=== PATIENT | female | born 2000 | race Caucasian/White ===

== ENCOUNTER → 2022-07-16 09:39 | Outpatient (BNVA) | payer BC, SELFPAY | PROVIDERS: Visit Provider Physician Assistant | DX: Z13.89 Encounter for screening for other disorder (principal) ==

== ENCOUNTER 2023-09-05 12:12 | Outpatient (AMB) | payer OTHER, SELFPAY ==
--- NOTE | 2023-09-05 09:13 | A.OFFPSYCH_ITS ---
Intake Vital Signs 09/05/23 09:28 Height 5 ft 3 in Weight 108 lb Intake Visit Reasons: depression, LAUREN (generalized anxiety disorder), Major depressive disorder, recurrent episode, moderate Configurator Required: No Allergies No Known Allergies Allergy (Verified 09/05/23 09:29) Medication List - Last Reconciled 09/05/23 by Liberty Hinson, VÍCTOR bupropion HCl 300 mg PO DAILY hydroxyzine HCl 25 - 50 mg PO BEDTIME lamotrigine 0 mg PO sertraline 100 mg PO DAILY HPI- Psychiatric Chief Complaint: depression, LAUREN (generalized anxiety disorder), Major depressive disorder, recurrent episode, moderate HPI Narrative: reports mood is low. she recently had TSH tested and it was high - her T3 and T4 levels were normal; she would like to have another follow up with PCP. she still feeels low energy, low mood; lack of enjoyment. we discussed how thyroid functioning can effect mood. She is anxious; she has stress with needing to find new housemate, she has work stress and one friend intentionally overdosed; her friend who overdosed is ok but pt was very worried and she had to call 911 to have police do wellness check in [place]. she reports fewer urges to self harm and no acts of self harm. No SI or HI. No rash. She is spending time with friends; Pt feels ADLs are easier to manage. she is sleeping better with hydroxyzine 25-50mg at hs Past Psychiatric History: History of self injury-at least two episodes of depression - one in high school and another which started in July 2018 and was quite significant for 3-6 weeks with increased SI and self harm urges; no hx hospitalization; has had stitches for self injury. Panic attacks: Yes Agoraphobia: Yes Separation anxiety disorder: No Social phobia: Yes Specific phobia: No Hypochondriasis: No Body dysmorphic disorder: Yes Obsessive compulsive disorder: No Generalized anxiety: Yes Post traumatic stress disorder: No Acute stress disorder: No Previous inpatient psychiatric hospitalization: No Other previous psychiatric treatment programs: none History of suicidal ideation: Yes History of suicide attempt: No Medically hospitalized: No History of self injurious behavior: Yes History of violence: No Current/previous psychiatrist: wei Current/previous therapist: Norene Andrews Subjective Subjective Subjective Medication Compliance: Yes Side effects from medications: No Review of Systems Medical Review of Systems: unchanged Mental Status Exam Mental Status Exam Patient Appearance: Well Grooomed and Appropriate Patient Orientation: Person, Place, Time and Situation Level of Consciousness: Awake Patient Behavior: Appropriate Mood Description: Withdrawn, Flat and Sad Affect Description: Withdrawn, Flat and Sad Patient Cognition Impaired: No Ability to Follow Directions: Good Speech Pattern: Soft-Spoken Memory Description: Intact Hallucinations: None Thought Process: Goal Oriented Thought Content: positive for Goal Oriented Judgement: Good Telehealth Telehealth Location of provider rendering services: practice address Location of patient: address on file Patient Identification confirmed using: Name, : Yes Telehealth method: video Patient verbally consented to treatment: Yes Patient verbally consented to billing insurance company: Yes Patient informed of any privacy concerns related to visit: Yes Minutes spent on Phone/Video with Pt.: 30 Assessment and Plan Assessment & Plan (1) Moderate episode of recurrent major depressive disorder: Code(s): F33.1 - Major depressive disorder, recurrent, moderate (2) Generalized anxiety disorder: Code(s): F41.1 - Generalized anxiety disorder Plan continue current medications pt will follow up with PCP re: tsh will call TW if need order for TSH blood work repeat follow up in 4 weeks Medications: New sertraline 100 mg PO DAILY 30 tabs 2RF bupropion HCl 300 mg PO DAILY 30 tabs 2RF hydroxyzine HCl 25 - 50 mg (1 - 2 x 25 mg) PO BEDTIME 30 tabs 2RF Changed From lamotrigine PO To lamotrigine 100 mg orally Take one tablet in morning and 1/2 tablet at bedtime; 135 tabs 1RF Counseling and coordination of Care Pt. Self Management counseling: Maintenance-social rhythm, Mod caffeine/ETOH intake and Behavior activation Medication management counseling: Effectiveness, Side effects, Dosing range, Duration, Drug interaction and Adherence Diagnosis and Prognosis Counseling: Accuracy of diagnosis, Prognosis over time, Impact of diagnosis on life functions, Impact of family relationship, Problema tic behaviors secondary to diagnosis and Adequacy of current interventions Details: I spent 30 minutes reviewing the record, seeing the patient and documenting in the medical record. Counseling provided to the patient/caregiver as outlined below. Addressed patient/caregiver concerns regarding current medication regime including effective adherence. Addressed patient/caregiver concerns regarding diagnosis and prognosis including accuracy of diagnosis, prognosis over time, impact of diagnosis. Addressed patient/caregiver concerns regarding impact of recent s tressors. [facility] Social History (Updated 07/16/22 @ 09:50 by Jerica Farmer) Alcohol intake: current Patient Tobacco Use Status: Never used Tobacco Current occupational status: employed Social History: lives with friends, graduated from [employer] [place] in 2022. Substance History: ETOH use 2-3 times a week; no other drugs Trauma History: none known Coding Level of Care Code Est Pt Level 4 (04707) Diagnoses Moderate episode of recurrent major depressive disorder F33.1 Generalized anxiety disorder F41.1
== END 2023-09-05 12:14 | disposition home or self-care (01) ==
LOC: HO.HOP 12:13
PROVIDERS: Visit Provider Clinical Nurse Specialist Psychiatric/Mental Health
DX: F33.1 Major depressive disorder, recurrent, moderate (principal); F41.1 Generalized anxiety disorder
CPT/HCPCS: 99214

== ENCOUNTER → 2023-09-05 12:12 | Outpatient (BNVA) | payer BC, SELFPAY | PROVIDERS: Visit Provider Clinical Nurse Specialist Psychiatric/Mental Health | DX: F33.1 Major depressive disorder, recurrent, moderate (principal); F41.1 Generalized anxiety disorder ==

== ENCOUNTER 2023-11-18 13:21 | Outpatient (AMB) | payer MEDICAID, SELFPAY ==
--- NOTE | 2023-11-18 09:38 | MHC.OFFVISPS ---
Intake Intake Visit Reasons: depression Allergies diphenhydramine [From Benadryl] Adverse Reaction (Severe, Verified 11/18/23 10:33) agitation/hyper/anxious Medication List - Last Reconciled 11/18/23 by Liberty Hinson APRN bupropion HCl XL 300 mg PO DAILY hydroxyzine HCl 25 - 50 mg (1 - 2 x 25 mg) PO BEDTIME lamotrigine 100 mg orally Take one tablet in morning and 1/2 tablet at bedtime; sertraline 100 mg PO DAILY HPI- Psychiatric Chief Complaint: depression HPI Narrative: pt is a 23 yo woman with history of depression and SIB since high school. She had been doing well with the addition of lamictal but recently had more depression and feelings of frustraion and sadness; feeling overwhelmed at one of her jobs. Had an episode of feeling strong negative emotioons and burnt herself; she reports itis healing and no sign of infection; pt also confides that she has a histroy of OCD intrusive thoughts and ritual . she has in the past had intrusive thoughts after she drives that she has hit someone and has to retrace her steps driving the same route to make sure; she reports a histroy of other thoughts like that but is reluctant to talk about them; TW has been seeing pt since 2019 and this is the first time that she has shared OCD symptoms which I told her was very helpful for me to know. she wants to reduce the zoloft as she feels it may be causing more mood swings but is also concerned because she felt it reduced the OCD thoughts; we will monitor response closely; discussed other options for OCD symptoms including other SSRis , SNRIs, or tricylcics and possible low dose antipsychotics Past Psychiatric History: no IPLOC History of self injury. at least two episodes of depression - one in high school and another which started in July 2018 and was quite significant for 3-6 weeks with increased SI and self harm urges; no hx hospitalization; has had stitches for self injury. Dx with ADHD. past medication trials Benadryl- adverse reaction with agitation, anxiety, hyperactive zoloft- moderate response- higher dose caused feeling detached melatonin- ineffective clonidine - ineffective trazodone - ineffective- too sedating mirtazepine- too sedating concerta - too activating ritlain - anxiety, ineffective adderall- activating Subjective Subjective Subjective Medication Compliance: Yes Side effects from medications: No Review of Systems Medical Review of Systems: unchanged Mental Status Exam Mental Status Exam Patient Appearance: Well Grooomed and Appropriate Patient Orientation: Person, Place, Time and Situation Level of Consciousness: Alert Patient Behavior: Appropriate and Cooperative Mood Description: Constricted and Anxious Affect Description: Constricted and Flat Patient Cognition Impaired: No Ability to Follow Directions: Good Speech Pattern: Clear, Soft-Spoken and Delayed Memory Description: Intact Hallucinations: None Delusions: Not Present Thought Process: Intact Thought Content: positive for Intact Judgement: Fair Assessment and Plan Assessment & Plan (1) OCD (obsessive compulsive disorder): Status: Acute Qualifiers: Obsessive-compulsive disorder type: mixed obsessional thoughts and acts Qualified Code(s): F42.2 - Mixed obsessional thoughts and acts Code(s): F42.9 - Obsessive-compulsive disorder, unspecified (2) Major depressive disorder, recurrent, moderate: Status: Acute Code(s): F33.1 - Major depressive disorder, recurrent, moderate Plan decrease zoloft to 50mg daily continue lamictal 100mg in am and 50mg at bedtime continue wellbutrin [id number] qam continue hydroxyzine prn anxiety and sleep retrun in 4 weeks Medications: Refilled bupropion HCl XL 300 mg PO DAILY 30 tabs 2RF hydroxyzine HCl 25 - 50 mg (1 - 2 x 25 mg) PO BEDTIME 30 tabs 2RF lamotrigine 100 mg orally Take one tablet in morning and 1/2 tablet at bedtime; 135 tabs 1RF Counseling and coordination of Care Pt. Self Management counseling: Maintenance-social rhythm, Mindfulness, Sleep hygiene and Cognitive restructuring Medication management counseling: Effectiveness, Side effects, Dosing range, Duration, Drug interaction and Adherence Diagnosis and Prognosis Counseling: Accuracy of diagnosis, Prognosis over time, Impact of diagnosis on life functions, Impact of family relationship, Problematic behaviors secondary to diagnosis, Adequacy of current interventions and Other (additional options for treatment ) Details: I spent 45 minutes reviewing the record, seeing the patient and documenting in the medical record. Counseling provided to the patient/caregiver as outlined below. Addressed patient/caregiver concerns regarding current medication regime including effective adherence. Addressed patient/caregiver concerns regarding diagnosis and prognosis including accuracy of diagnosis, prognosis over time, impact of diagnosis. Addressed patient/caregiver concerns regarding impact of recent stressors. PFSH Social History (Updated 07/16/22 @ 09:50 by Jerica Farmer) Alcohol intake: current Patient Tobacco Use Status: Never used Tobacco Current occupational status: employed Social History: lives with friends, [place] [employer] [facility] [place]. Substance History: ETOH use 2-3 times a week; no other drugs Trauma History: none known Coding Level of Care Code Est Pt Level 5 (54199) Diagnoses Mixed obsessional thoughts and acts F42.2 Obsessive-compulsive disorder type: mixed obsessional thoughts and acts Major depressive disorder, recurrent, moderate F33.1
== END 2023-11-18 13:22 | disposition home or self-care (01) ==
LOC: HO.HOP 13:21
PROVIDERS: Visit Provider Clinical Nurse Specialist Psychiatric/Mental Health
DX: F42.2 Mixed obsessional thoughts and acts (principal); F33.1 Major depressive disorder, recurrent, moderate
CPT/HCPCS: 99215

== ENCOUNTER → 2023-11-18 13:21 | Outpatient (BNVA) | payer MEDICAID, SELFPAY | PROVIDERS: Visit Provider Clinical Nurse Specialist Psychiatric/Mental Health | DX: F42.2 Mixed obsessional thoughts and acts (principal); F33.1 Major depressive disorder, recurrent, moderate; Z79.899 Other long term (current) drug therapy | CPT/HCPCS: 99212 ==

== ENCOUNTER 2023-12-15 19:06 | Outpatient (AMB) | payer OTHER, SELFPAY ==
--- NOTE | 2023-12-15 11:32 | A.OFFPSYCH_ITS ---
Intake Intake Visit Reasons: depression Forensic Nurse Required: No Allergies diphenhydramine [From Benadryl] Adverse Reaction (Severe, Verified 11/18/23 10:33) agitation/hyper/anxious Medication List - Last Reconciled 12/15/23 by Liberty Hinson APRN bupropion HCl XL 300 mg PO DAILY hydroxyzine HCl 25 - 50 mg (1 - 2 x 25 mg) PO BEDTIME lamotrigine 100 mg orally Take one tablet in morning and 1/2 tablet at bedtime; sertraline 100 mg (2 x 50 mg) PO DAILY HPI- Psychiatric Chief Complaint: depression HPI Narrative: pt reports an increase in intrusive thoughts that she repeats in her head since the decrease in zoloft; she has also had increase stress at work which may be fueling these thoughts; no SI or HI. level of distress from repeating thoughts is a 7/10. no self harm behaviors; we discussed her resuming the zoloft 100mg daily until work stress decreases and then consider trying another agent due tot he zoloft flattening her mood. Past Psychiatric History: no IPLOC History of self injury. at least two episodes of depression - one in high school and another which started in July 2018 and was quite significant for 3-6 weeks with increased SI and self harm urges; no hx hospitalization; has had stitches for self injury. Dx with ADHD. past medication trials Benadryl- adverse reaction with agitation, anxiety, hyperactive zoloft- moderate response- higher dose caused feeling detached melatonin- ineffective clonidine - ineffective trazodone - ineffective- too sedating mirtazepine- too sedating concerta - too activating ritlain - anxiety, ineffective adderall- activating Subjective Subjective Subjective Medication Compliance: Yes Side effects from medications: No Review of Systems Medical Review of Systems: unchanged Mental Status Exam Mental Status Exam Patient Appearance: Well Grooomed Patient Orientation: Person, Place, Time and Situation Level of Consciousness: Awake Patient Behavior: Appropriate Mood Description: Anxious Affect Description: Constricted Patient Cognition Impaired: No Ability to Follow Directions: Good Speech Pattern: Clear Memory Description: Intact Hallucinations: None Delusions: Not Present Thought Process: Intact Thought Content: positive for Intact Judgement: Fair Telehealth Telehealth Telehealth Platform: Other (please specify) ([email or web address]) Location of provider rendering services: practice address Location of patient: address on file Telehealth method: video Patient verbally consented to treatment: Yes Patient verbally consented to billing insurance company: Yes Patient informed of any privacy concerns related to visit: Yes Minutes spent on Phone/Video with Pt.: 25 Assessment and Plan Assessment & Plan (1) OCD (obsessive compulsive disorder): Status: Acute Qualifiers: Obsessive-compulsive disorder type: mixed obsessional thoughts and acts Qualified Code(s): F42.2 - Mixed obsessional thoughts and acts Code(s): F42.9 - Obsessive-compulsive disorder, unspecified (2) Major depressive disorder, recurrent, moderate: Status: Acute Code(s): F33.1 - Major depressive disorder, recurrent, moderate Plan increase in OCD symptoms with reduced zoloft. resume zoloft dose and consider alternative in future when external stressors remit Medications: Changed From sertraline 75 mg (1.5 x 50 mg) PO DAILY 45 tabs 2RF To sertraline 100 mg (2 x 50 mg) PO DAILY 60 tabs 2RF Counseling and coordination of Care Pt. Self Management counseling: General coping skills Medication management counseling: Effectiveness, Side effects, Dosing range, Duration, Drug interaction and Adherence Diagnosis and Prognosis Counseling: Accuracy of diagnosis, Prognosis over time, Impact of diagnosis on life functions and Adequacy of current interventions Details: I spent 30 minutes reviewing the record, seeing the patient and documenting in the medical record. Counseling provided to the patient/caregiver as outlined below. Addressed patient/caregiver concerns regarding current medication regime including effective adherence. Addressed patient/caregiver concerns regarding diagnosis and prognosis including accuracy of diagnosis, prognosis over time, impact of diagnosis. Addressed patient/caregiver concerns regarding impact of recent stressors. [facility] Social History (Updated 07/16/22 @ 09:50 by Jerica Farmer) Alcohol intake: current Patient Tobacco Use Status: Never used Tobacco Current occupational status: employed Social History: lives with friends, graduated from [employer] [facility] [place] in 2022. Substance History: ETOH use 2-3 times a week; no other drugs Trauma History: none known Coding Level of Care Code Tele Est Pt Level 4 (06029) Diagnoses Mixed obsessional thoughts and acts F42.2 Obsessive-compulsive disorder type: mixed obsessional thoughts and acts Major depressive disorder, recurrent, moderate F33.1
== END 2023-12-15 19:07 | disposition home or self-care (01) ==
PROVIDERS: Visit Provider Clinical Nurse Specialist Psychiatric/Mental Health
DX: F42.2 Mixed obsessional thoughts and acts (principal); F33.1 Major depressive disorder, recurrent, moderate
CPT/HCPCS: 99214

== ENCOUNTER → 2023-12-15 19:06 | Outpatient (BNVA) | payer OTHER, SELFPAY | PROVIDERS: Visit Provider Clinical Nurse Specialist Psychiatric/Mental Health | DX: F42.2 Mixed obsessional thoughts and acts (principal); F33.1 Major depressive disorder, recurrent, moderate ==

== ENCOUNTER 2024-01-19 14:42 | Outpatient (AMB) | payer OTHER, SELFPAY ==
--- NOTE | 2024-01-19 10:16 | A.OFFPSYCH_ITS ---
Intake Intake Visit Reasons: depression Physiologist Required: No Allergies diphenhydramine [From Benadryl] Adverse Reaction (Severe, Verified 11/18/23 10:33) agitation/hyper/anxious Medication List - Last Reconciled 01/19/24 by Liberty Hinson APRN bupropion HCl XL 300 mg PO DAILY hydroxyzine HCl 25 - 50 mg (1 - 2 x 25 mg) PO BEDTIME lamotrigine 100 mg orally Take one tablet in morning and 1/2 tablet at bedtime; sertraline 100 mg (2 x 50 mg) PO DAILY HPI- Psychiatric Chief Complaint: depression HPI Narrative: mood improved; intrusive thoughts decreased; OCD improved with restart of zoloft. pt not sleeping well despite hydroxyzine; continues with work stress and worry. meeting with therapist regularly; no SI or HI ; no medical changes Past Psychiatric History: no IPLOC History of self injury. at least two episodes of depression - one in high school and another which started in July 2018 and was quite significant for 3-6 weeks with increased SI and self harm urges; no hx hospitalization; has had stitches for self injury. Dx with ADHD. past medication trials Benadryl- adverse reaction with agitation, anxiety, hyperactive zoloft- moderate response- higher dose caused feeling detached melatonin- ineffective clonidine - ineffective trazodone - ineffective- too sedating mirtazepine- too sedating concerta - too activating ritlain - anxiety, ineffective adderall- activating Subjective Subjective Subjective Medication Compliance: Yes Side effects from medications: No Review of Systems Medical Review of Systems: unchanged Mental Status Exam Mental Status Exam Patient Appearance: Well Grooomed and Appropriate Patient Orientation: Person, Place, Time and Situation Level of Consciousness: Awake Patient Behavior: Appropriate Mood Description: Calm Affect Description: Calm Patient Cognition Impaired: No Ability to Follow Directions: Good Speech Pattern: Clear Memory Description: Intact Hallucinations: None Delusions: Not Present Thought Process: Intact Thought Content: positive for Intact Judgement: Good Assessment and Plan Assessment & Plan (1) Major depressive disorder, recurrent, moderate: Status: Acute Code(s): F33.1 - Major depressive disorder, recurrent, moderate (2) OCD (obsessive compulsive disorder): Status: Acute Qualifiers: Obsessive-compulsive disorder type: mixed obsessional thoughts and acts Qualified Code(s): F42.2 - Mixed obsessional thoughts and acts Code(s): F42.9 - Obsessive-compulsive disorder, unspecified (3) Insomnia: Status: Acute Qualifiers: Insomnia type: unspecified Qualified Code(s): G47.00 - Insomnia, unspecified Code(s): G47.00 - Insomnia, unspecified Plan change lamictal to once daily dosing in am in case causinf or contributing to insomnia lamictal 150 mg every morning continue zoloft 100mg daily continue wellbutrin Xl 300mg every morning continue hydroxyzine Medications: New sertraline 100 mg PO DAILY 90 tabs 0RF Counseling and coordination of Care Pt. Self Management counseling: Mod caffeine/ETOH intake, Sleep hygiene and General coping skills Medication management counseling: Effectiveness, Side effects, Dosing range, Duration, Drug interaction and Adherence Diagnosis and Prognosis Counseling: Accuracy of diagnosis, Prognosis over time, Impact of diagnosis on life functions, Impact of family relationship, Problematic behaviors secondary to diagnosis and Adequacy of current interventions Details: I spent 30 minutes reviewing the record, seeing the patient and documenting in the medical record. Counseling provided to the patient/caregiver as outlined below. Addressed patient/caregiver concerns regarding current medication regime including effective adherence. Addressed patient/caregiver concerns regarding diagnosis and prognosis including accuracy of diagnosis, prognosis over time, impact of diagnosis. Addressed patient/caregiver concerns regarding impact of recent stressors. [facility] Social History (Updated 07/16/22 @ 09:50 by Jerica Farmer) Alcohol intake: current Patient Tobacco Use Status: Never used Tobacco Current occupational status: employed Social History: lives with friends, graduated from [employer] [facility] [place] in 2022. Substance History: ETOH use 2-3 times a week; no other drugs Trauma History: none known Coding Level of Care Code Est Pt Level 4 (54408) Diagnoses Major depressive disorder, recurrent, moderate F33.1 Mixed obsessional thoughts and acts F42.2 Obsessive-compulsive disorder type: mixed obsessional thoughts and acts Insomnia, unspecified type G47.00 Insomnia type: unspecified
== END 2024-01-19 14:43 | disposition home or self-care (01) ==
LOC: HO.HOP 14:42
PROVIDERS: Visit Provider Clinical Nurse Specialist Psychiatric/Mental Health
DX: F33.1 Major depressive disorder, recurrent, moderate (principal); F42.2 Mixed obsessional thoughts and acts; G47.00 Insomnia, unspecified
CPT/HCPCS: 99214

== ENCOUNTER → 2024-01-19 14:42 | Outpatient (BNVA) | payer OTHER, SELFPAY | PROVIDERS: Visit Provider Clinical Nurse Specialist Psychiatric/Mental Health | DX: F42.2 Mixed obsessional thoughts and acts (principal); F33.1 Major depressive disorder, recurrent, moderate; G47.00 Insomnia, unspecified ==

== ENCOUNTER → 2024-02-24 16:09 | Outpatient (BNVA) | payer OTHER, SELFPAY | PROVIDERS: Visit Provider Clinical Nurse Specialist Psychiatric/Mental Health | DX: F42.2 Mixed obsessional thoughts and acts (principal); F33.1 Major depressive disorder, recurrent, moderate; G47.00 Insomnia, unspecified ==

== ENCOUNTER 2024-03-23 13:20 | Outpatient (AMB) | payer OTHER, SELFPAY ==
--- NOTE | 2024-03-23 13:03 | A.OFFPSYCH_ITS ---
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 she also reports Obsessive Compulsive Disorder symptoms are improved. She reports her sleep is not good she is often staying up late as she adjusts to her new work schedule where she is working 2nd shift. She reports her self-care has suffered as she adjusts to her new schedule. She does not want to change meds. She is seeing her therapist on a regular basis. And she is working on lifestyle changes. No SI no HI Past Psychiatric History: no IPLOC History of self injury. at least two episodes of depression - one in high school and another which started in July 2018 and was quite significant for 3-6 weeks with increased SI and self harm urges; no hx hospitalization; has had stitches for self injury. Dx with ADHD. past medication trials Benadryl- adverse reaction with agitation, anxiety, hyperactive zoloft- moderate response- higher dose caused feeling detached melatonin- ineffective clonidine - ineffective trazodone - ineffective- too sedating mirtazepine- too sedating concerta - too activating ritlain - anxiety, ineffective adderall- activating Subjective Subjective Subjective Medication Compliance: Yes Side effects from medications: No Review of Systems Medical Review of Systems: unchanged Mental Status Exam Mental Status Exam Patient Appearance: Appropriate Patient Orientation: Person, Place, Time and Situation Level of Consciousness: Awake and Appropriate Patient Behavior: Appropriate Mood Description: Calm, Withdrawn and Blunted Affect Description: Calm, Withdrawn and Blunted Patient Cognition Impaired: No Ability to Follow Directions: Good Speech Pattern: Clear and Appropriate Memory Description: Intact Hallucinations: None Delusions: Not Present Thought Process: Intact and Goal Oriented Thought Content: positive for Intact and positive for Goal Oriented Judgement: Good Telehealth Telehealth Telehealth Platform: Other (please specify) ([email or web address]) Location of provider rendering services: practice address Location of patient: address on file Patient Identification confirmed using: Name, : Yes Telehealth method: video Patient verbally consented to treatment: Yes Patient verbally consented to billing insurance company: Yes Patient informed of any privacy concerns related to visit: Yes Minutes spent on Phone/Video with Pt.: 25 Assessment and Plan Assessment & Plan (1) Insomnia: Status: Acute Qualifiers: Insomnia type: unspecified Qualified Code(s): G47.00 - Insomnia, unspecified Code(s): G47.00 - Insomnia, unspecified (2) Major depressive disorder, recurrent, moderate: Status: Acute Code(s): F33.1 - Major depressive disorder, recurrent, moderate (3) OCD (obsessive compulsive disorder): Status: Acute Code(s): F42.9 - Obsessive-compulsive disorder, unspecified Plan continue medications sleep hygiene routine Medications: Refilled bupropion HCl XL 300 mg PO DAILY 30 tabs 2RF sertraline 100 mg PO DAILY 90 tabs 2RF lamotrigine 100 mg orally Take one tablet in morning and 1/2 tablet at bedtime; 135 tabs 1RF hydroxyzine HCl 25 - 50 mg (1 - 2 x 25 mg) PO BEDTIME 90 tabs 1RF 90 days Counseling and coordination of Care Pt. Self Management counseling: Maintenance-social rhythm and Sleep hygiene Medication management counseling: Effectiveness, Side effects, Dosing range, Duration, Drug interaction and Adherence Diagnosis and Prognosis Counseling: Accuracy of diagnosis, Prognosis over time, Impact of diagnosis on life functions and Adequacy of current interventions Details: I spent 35 minutes reviewing the record, seeing the patient and documenting in the medical record. Counseling provided to the patient/caregiver as outlined below. Addressed patient/caregiver concerns regarding current medication regime including effective adherence. Addressed patient/caregiver concerns regarding diagnosis and prognosis including accuracy of diagnosis, prognosis over time, impact of diagnosis. Addressed patient/caregiver concerns regarding impact of recent stressors. [facility] Social History (Updated 07/16/22 @ 09:50 by Jerica Farmer) Alcohol intake: current Patient Tobacco Use Status: Never used Tobacco Current occupational status: employed Social History: lives with friends, graduated from [employer] [facility] [place] in 2022. Substance History: ETOH use 2-3 times a week; no other drugs Trauma History: none known Coding Level of Care Code Est Pt Level 4 (87582) Diagnoses Insomnia, unspecified type G47.00 Insomnia type: unspecified Major depressive disorder, recurrent, moderate F33.1 OCD (obsessive compulsive disorder) F42.9
== END 2024-03-23 14:09 | disposition home or self-care (01) ==
LOC: HO.HOP 13:20
PROVIDERS: Visit Provider Clinical Nurse Specialist Psychiatric/Mental Health
DX: F33.1 Major depressive disorder, recurrent, moderate (principal); F42.9 Obsessive-compulsive disorder, unspecified; G47.00 Insomnia, unspecified
CPT/HCPCS: 99214

== ENCOUNTER → 2024-03-23 13:20 | Outpatient (BNVA) | payer OTHER, SELFPAY | PROVIDERS: Visit Provider Clinical Nurse Specialist Psychiatric/Mental Health | DX: F42.2 Mixed obsessional thoughts and acts (principal); F33.1 Major depressive disorder, recurrent, moderate; G47.00 Insomnia, unspecified ==

== ENCOUNTER 2024-04-26 13:00 | Outpatient (AMB) | payer OTHER, SELFPAY ==
--- NOTE | 2024-04-26 12:42 | MHC.OFFVISPS ---
Intake Intake Visit Reasons: depression Allergies diphenhydramine [From Benadryl] Adverse Reaction (Severe, Verified 11/18/23 10:33) agitation/hyper/anxious Medication List - Last Reconciled 04/26/24 by Liberty Hinson APRN bupropion HCl XL 300 mg PO DAILY hydroxyzine HCl 25 - 50 mg (1 - 2 x 25 mg) PO BEDTIME 90 days lamotrigine 100 mg orally Take one tablet in morning and 1/2 tablet at bedtime; sertraline 100 mg PO DAILY sumatriptan succinate mg PO HPI- Psychiatric Chief Complaint: depression HPI Narrative: Patient reports she continues to feel somewhat depressed and anxious. She reports continued distress at work. Her affect is brighter. She is consistent with the medications and she is taking vitamins: taking vit b2 daily vit D 1000 daily multivitamin magnesium 400mg at bedtime Her sleep is fair no self-harm behaviors. No SI no HI Past Psychiatric History: no IPLOC History of self injury. at least two episodes of depression - one in high school and another which started in July 2018 and was quite significant for 3-6 weeks with increased SI and self harm urges; no hx hospitalization; has had stitches for self injury. Dx with ADHD. past medication trials Benadryl- adverse reaction with agitation, anxiety, hyperactive zoloft- moderate response- higher dose caused feeling detached melatonin- ineffective clonidine - ineffective trazodone - ineffective- too sedating mirtazepine- too sedating concerta - too activating ritlain - anxiety, ineffective adderall- activating Mental Status Exam Mental Status Exam Patient Appearance: Well Grooomed Patient Orientation: Person, Time and Situation Level of Consciousness: Awake and Appropriate Patient Behavior: Appropriate and Cooperative Mood Description: Happy, Constricted and Anxious Affect Description: Happy, Constricted and Anxious Patient Cognition Impaired: No Ability to Follow Directions: Good Speech Pattern: Clear Memory Description: Intact Hallucinations: None Delusions: Not Present Thought Process: Intact and Goal Oriented Thought Content: positive for Intact and positive for Goal Oriented Judgement: Good Telehealth Telehealth Telehealth Platform: Other (please specify) ([email or web address]) Location of provider rendering services: practice address Location of patient: address on file Patient Identification confirmed using: Name, : Yes Telehealth method: video Patient verbally consented to treatment: Yes Patient verbally consented to billing insurance company: Yes Patient informed of any privacy concerns related to visit: Yes Minutes spent on Phone/Video with Pt.: 30 Assessment and Plan Assessment & Plan (1) Insomnia: Status: Acute Qualifiers: Insomnia type: unspecified Qualified Code(s): G47.00 - Insomnia, unspecified Code(s): G47.00 - Insomnia, unspecified (2) Major depressive disorder, recurrent, moderate: Status: Acute Code(s): F33.1 - Major depressive disorder, recurrent, moderate (3) OCD (obsessive compulsive disorder): Status: Acute Qualifiers: Obsessive-compulsive disorder type: mixed obsessional thoughts and acts Qualified Code(s): F42.2 - Mixed obsessional thoughts and acts Code(s): F42.9 - Obsessive-compulsive disorder, unspecified Plan Continue medications with no changes. Patient is feeling good about medications at this point and will continue to work on stress management and coping skills. Return in 1 month Medications: Refilled sertraline 100 mg PO DAILY 90 tabs 2RF bupropion HCl XL 300 mg PO DAILY 30 tabs 2RF hydroxyzine HCl 25 - 50 mg (1 - 2 x 25 mg) PO BEDTIME 90 tabs 1RF 90 days lamotrigine 100 mg orally Take one tablet in morning and 1/2 tablet at bedtime; 135 tabs 1RF Counseling and coordination of Care Pt. Self Management counseling: Maintenance-social rhythm, Mod caffeine/ETOH intake, Sleep hygiene, Behavior activation, General coping skills and Problem solving Medication management counseling: Effectiveness, Side effects, Dosing range, Duration, Drug interaction and Adherence Diagnosis and Prognosis Counseling: Accuracy of diagnosis, Prognosis over time, Impact of diagnosis on life functions, Impact of family relationship, Problematic behaviors secondary to diagnosis and Adequacy of current interventions Details: I spent 40 minutes reviewing the record, seeing the patient and documenting in the medical record. Counseling provided to the patient/caregiver as outlined below. Addressed patient/caregiver concerns regarding current medication regime including effective adherence. Addressed patient/caregiver concerns regarding diagnosis and prognosis including accuracy of diagnosis, prognosis over time, impact of diagnosis. Addressed patient/caregiver concerns regarding impact of recent stressors. [facility] Social History (Updated 07/16/22 @ 09:50 by Jerica Farmer) Alcohol intake: current Patient Tobacco Use Status: Never used Tobacco Current occupational status: employed Social History: lives with friends, graduated from [employer] in 2022. Substance History: ETOH use 2-3 times a week; no other drugs Trauma History: none known Coding Level of Care Code Est Pt Level 4 (66356) Diagnoses Insomnia, unspecified type G47.00 Insomnia type: unspecified Major depressive disorder, recurrent, moderate F33.1 Mixed obsessional thoughts and acts F42.2 Obsessive-compulsive disorder type: mixed obsessional thoughts and acts
== END 2024-04-26 13:01 | disposition home or self-care (01) ==
LOC: HO.HOP 13:00
PROVIDERS: Visit Provider Clinical Nurse Specialist Psychiatric/Mental Health
DX: F33.1 Major depressive disorder, recurrent, moderate (principal); F42.2 Mixed obsessional thoughts and acts; G47.00 Insomnia, unspecified
CPT/HCPCS: 99214

== ENCOUNTER 2024-06-07 14:41 | Outpatient (AMB) | payer OTHER, SELFPAY ==
--- NOTE | 2024-06-07 13:05 | A.OFFPSYCH_ITS ---
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 consistently taking medications; no side effects; reports 3 nights recently of sleeping lightly, more trouble falling asleep and waking in middle of night; does not want to change medications but will monitor. no SI no HI Past Psychiatric History: no IPLOC History of self injury. at least two episodes of depression - one in high school and another which started in July 2018 and was quite significant for 3-6 weeks with increased SI and self harm urges; no hx hospitalization; has had stitches for self injury. Dx with ADHD. past medication trials Benadryl- adverse reaction with agitation, anxiety, hyperactive zoloft- moderate response- higher dose caused feeling detached melatonin- ineffective clonidine - ineffective trazodone - ineffective- too sedating mirtazepine- too sedating concerta - too activating ritlain - anxiety, ineffective adderall- activating Subjective Subjective Subjective Medication Compliance: Yes Side effects from medications: No Review of Systems Medical Review of Systems: unchanged Mental Status Exam Mental Status Exam Patient Appearance: Well Grooomed and Appropriate Patient Orientation: Person, Place, Time and Situation Level of Consciousness: Awake and Alert Patient Behavior: Appropriate and Cooperative Mood Description: Calm Affect Description: Calm Patient Cognition Impaired: No Ability to Follow Directions: Good Speech Pattern: Soft-Spoken and Delayed Memory Description: Intact Hallucinations: None Delusions: Not Present Thought Content: positive for Intact and positive for Goal Oriented Judgement: Good Telehealth Telehealth Telehealth Platform: Other (please specify) ([email or web address]) Location of provider rendering services: practice address Location of patient: address on file Patient Identification confirmed using: Name, : Yes Telehealth method: video Patient verbally consented to treatment: Yes Patient verbally consented to billing insurance company: Yes Patient informed of any privacy concerns related to visit: Yes Minutes spent on Phone/Video with Pt.: 30 Assessment and Plan Assessment & Plan (1) Major depressive disorder, recurrent, moderate: Status: Acute Code(s): F33.1 - Major depressive disorder, recurrent, moderate (2) Insomnia: Status: Acute Qualifiers: Insomnia type: unspecified Qualified Code(s): G47.00 - Insomnia, unspecified Code(s): G47.00 - Insomnia, unspecified (3) OCD (obsessive compulsive disorder): Status: Acute Qualifiers: Obsessive-compulsive disorder type: mixed obsessional thoughts and acts Qualified Code(s): F42.2 - Mixed obsessional thoughts and acts Code(s): F42.9 - Obsessive-compulsive disorder, unspecified Medications: Refilled lamotrigine 100 mg orally Take one tablet in morning and 1/2 tablet at bedtime; 135 tabs 1RF sertraline 100 mg PO DAILY 90 tabs 2RF bupropion HCl XL 300 mg PO DAILY 30 tabs 2RF hydroxyzine HCl 25 - 50 mg (1 - 2 x 25 mg) PO BEDTIME 90 days 90 tabs 1RF Counseling and coordination of Care Pt. Self Management counseling: Maintenance-social rhythm, Mod caffeine/ETOH intake, Sleep hygiene, Behavior activation, General coping skills and Problem solving Medication management counseling: Effectiveness, Side effects, Dosing range, Duration, Drug interaction and Adherence Diagnosis and Prognosis Counseling: Accuracy of diagnosis, Prognosis over time, Impact of diagnosis on life functions, Impact of family relationship, Problematic behaviors secondary to diagnosis and Adequacy of current interventions Details: I spent 30 minutes reviewing the record, seeing the patient and documenting in the medical record. Counseling provided to the patient/caregiver as outlined below. Addressed patient/caregiver concerns regarding current medication regime including effective adherence. Addressed patient/caregiver concerns regarding diagnosis and prognosis including accuracy of diagnosis, prognosis over time, impact of diagnosis. Addressed patient/caregiver concerns regarding impact of recent stressors. [facility] Social History (Updated 07/16/22 @ 09:50 by Jerica Farmer) Alcohol intake: current Patient Tobacco Use Status: Never used Tobacco Current occupational status: employed Social History: lives with friends, graduated from [employer] [facility] [place] in 2022. Substance History: ETOH use 2-3 times a week; no other drugs Trauma History: none known Coding Level of Care Code Tele Est Pt Level 4 (61040) Diagnoses Major depressive disorder, recurrent, moderate F33.1 Insomnia, unspecified type G47.00 Insomnia type: unspecified Mixed obsessional thoughts and acts F42.2 Obsessive-compulsive disorder type: mixed obsessional thoughts and acts
== END 2024-06-07 14:44 | disposition home or self-care (01) ==
LOC: HO.HOP 14:41
PROVIDERS: Visit Provider Clinical Nurse Specialist Psychiatric/Mental Health
DX: F33.1 Major depressive disorder, recurrent, moderate (principal); G47.00 Insomnia, unspecified; F42.2 Mixed obsessional thoughts and acts
CPT/HCPCS: 98006

== ENCOUNTER 2024-07-10 11:40 | Outpatient (AMB) | payer OTHER, SELFPAY ==
--- NOTE | 2024-07-10 12:17 | MHC.OFFVISPS ---
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 work is very stressful; no self harm ; no SI or Hi. 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 Past Psychiatric History: no IPLOC History of self injury. at least two episodes of depression - one in high school and another which started in July 2018 and was quite significant for 3-6 weeks with increased SI and self harm urges; no hx hospitalization; has had stitches for self injury. Dx with ADHD. past medication trials Benadryl- adverse reaction with agitation, anxiety, hyperactive zoloft- moderate response- higher dose caused feeling detached melatonin- ineffective clonidine - ineffective trazodone - ineffective- too sedating mirtazepine- too sedating concerta - too activating ritlain - anxiety, ineffective adderall- activating Subjective Subjective Subjective Medication Compliance: Yes Side effects from medications: No Review of Systems Medical Review of Systems: unchanged Mental Status Exam Mental Status Exam Patient Appearance: Well Grooomed and Appropriate Patient Orientation: Person, Place, Time and Situation Level of Consciousness: Awake, Appropriate and Alert Patient Behavior: Appropriate and Cooperative Mood Description: Flat and Sad Affect Description: Flat and Sad Patient Cognition Impaired: No Ability to Follow Directions: Good Speech Pattern: Clear, Appropriate, Soft-Spoken and Long Pauses Memory Description: Intact Hallucinations: None Delusions: Not Present Thought Process: Intact and Distracted Thought Content: positive for Intact Judgement: Fair Telehealth Telehealth Telehealth Platform: Other (please specify) ([email or web address]) Location of provider rendering services: practice address Location of patient: address on file Patient Identification confirmed using: Name, : Yes Telehealth method: video Patient verbally consented to treatment: Yes Patient verbally consented to billing insurance company: Yes Patient informed of any privacy concerns related to visit: Yes Minutes spent on Phone/Video with Pt.: 30 Assessment and Plan Assessment & Plan (1) Major depressive disorder, recurrent, moderate: Status: Acute Code(s): F33.1 - Major depressive disorder, recurrent, moderate (2) OCD (obsessive compulsive disorder): Status: Acute Qualifiers: Obsessive-compulsive disorder type: mixed obsessional thoughts and acts Qualified Code(s): F42.2 - Mixed obsessional thoughts and acts Code(s): F42.9 - Obsessive-compulsive disorder, unspecified (3) Insomnia: Status: Acute Qualifiers: Insomnia type: unspecified Qualified Code(s): G47.00 - Insomnia, unspecified Code(s): G47.00 - Insomnia, unspecified Plan increase lamictal add tenex for sleep drink 6 ounces of water before bed with tenex to prevent dehydration and low BP add b12 vitamin daily consider remeron for antidepressant in future Medications: New guanfacine Take 1/2 to 1 tablet at bedtime as needed for sleep orally bedtime; 30 tabs 0RF Changed From lamotrigine 100 mg orally Take one tablet in morning and 1/2 tablet at bedtime; 135 tabs 1RF To lamotrigine 100 mg PO BID 180 tabs 1RF Discontinued hydroxyzine HCl Discontinued Reason: Doctor's Order 25 - 50 mg (1 - 2 x 25 mg) PO BEDTIME 90 days 90 tabs 1RF Counseling and coordination of Care Pt. Self Management counseling: Maintenance-social rhythm, Mod caffeine/ETOH intake, Nutrition education and improvement, Sleep hygiene, Behavior activation and General coping skills Medication management counseling: Effectiveness, Side effects, Dosing range, Duration, Drug interaction and Adherence Diagnosis and Prognosis Counseling: Accuracy of diagnosis, Prognosis over time, Impact of diagnosis on life functions, Impact of family relationship, Problematic behaviors secondary to diagnosis and Adequacy of current interventions Details: I spent 40 minutes reviewing the record, seeing the patient and documenting in the medical record. Counseling provided to the patient/caregiver as outlined below. Addressed patient/caregiver concerns regarding current medication regime including effective adherence. Addressed patient/caregiver concerns regarding diagnosis and prognosis including accuracy of diagnosis, prognosis over time, impact of diagnosis. Addressed patient/caregiver concerns regarding impact of recent stressors. [facility] Social History (Updated 07/16/22 @ 09:50 by Jerica Farmer) Alcohol intake: current Patient Tobacco Use Status: Never used Tobacco Current occupational status: employed Social History: lives with friends, graduated from [employer] [place] in 2022. Substance History: ETOH use 2-3 times a week; no other drugs Trauma History: none known Coding Level of Care Code Tele Est Pt Level 4 (16188) Diagnoses Major depressive disorder, recurrent, moderate F33.1 Mixed obsessional thoughts and acts F42.2 Obsessive-compulsive disorder type: mixed obsessional thoughts and acts Insomnia, unspecified type G47.00 Insomnia type: unspecified
== END 2024-07-10 16:07 | disposition home or self-care (01) ==
LOC: HO.HOP 11:40
PROVIDERS: Visit Provider Clinical Nurse Specialist Psychiatric/Mental Health
DX: F33.1 Major depressive disorder, recurrent, moderate (principal); F42.2 Mixed obsessional thoughts and acts; G47.00 Insomnia, unspecified
CPT/HCPCS: 99214

== ENCOUNTER → 2024-07-10 11:40 | Outpatient (BNVA) | payer OTHER, SELFPAY | PROVIDERS: Visit Provider Clinical Nurse Specialist Psychiatric/Mental Health | DX: F42.2 Mixed obsessional thoughts and acts (principal); F33.1 Major depressive disorder, recurrent, moderate; G47.00 Insomnia, unspecified ==

== ENCOUNTER 2024-08-07 11:30 | Outpatient (AMB) | payer OTHER, SELFPAY ==
--- NOTE | 2024-08-07 11:40 | MHC.OFFVISPS ---
Intake Intake Visit Reasons: depression Medical Staff Services Manager Required: No Allergies diphenhydramine [From Benadryl] Adverse Reaction (Severe, Verified 11/18/23 10:33) agitation/hyper/anxious Medication List - Last Reconciled 08/07/24 by Liberty Hinson APRN bupropion HCl XL 300 mg PO DAILY guanfacine Take 1/2 to 1 tablet at bedtime as needed for sleep orally bedtime; lamotrigine 100 mg PO BID sertraline 100 mg PO DAILY sumatriptan succinate mg PO HPI- Psychiatric Chief Complaint: depression HPI Narrative: pt reports improvement; her PHQ9= 19 down from 15. Her LAUREN& is the same= 9. she is tolerating the increase in lamictal without side effects. sleep is fait she has not tried the tenex yet. we discussed options for swiwtching the antidepressant from zoloft to lexapro- she is more interested in changing to lexapro than remeron. she reports no SI or HI. one episode of SIB 3-4 weeks ago. Past Psychiatric History: no IPLOC History of self injury. at least two episodes of depression - one in high school and another which started in July 2018 and was quite significant for 3-6 weeks with increased SI and self harm urges; no hx hospitalization; has had stitches for self injury. Dx with ADHD. past medication trials Benadryl- adverse reaction with agitation, anxiety, hyperactive zoloft- moderate response- higher dose caused feeling detached melatonin- ineffective clonidine - ineffective trazodone - ineffective- too sedating mirtazepine- too sedating concerta - too activating ritlain - anxiety, ineffective adderall- activating Subjective Subjective Subjective Medication Compliance: Yes Side effects from medications: No Review of Systems Medical Review of Systems: unchanged Mental Status Exam Mental Status Exam Patient Appearance: Well Grooomed and Appropriate Patient Orientation: Person, Place, Time and Situation Level of Consciousness: Awake and Appropriate Patient Behavior: Appropriate and Good Eye Contact Mood Description: Constricted, Depressed, Anxious and Sad Affect Description: Constricted and Sad Patient Cognition Impaired: No Ability to Follow Directions: Good Speech Pattern: Clear and Soft-Spoken Memory Description: Intact Hallucinations: None Delusions: Not Present Thought Process: Intact and Goal Oriented Thought Content: positive for Intact and positive for Goal Oriented Judgement: Fair Assessment and Plan Assessment & Plan (1) Insomnia: Status: Acute Qualifiers: Insomnia type: unspecified Qualified Code(s): G47.00 - Insomnia, unspecified Code(s): G47.00 - Insomnia, unspecified (2) Major depressive disorder, recurrent, moderate: Status: Acute Code(s): F33.1 - Major depressive disorder, recurrent, moderate (3) OCD (obsessive compulsive disorder): Status: Acute Qualifiers: Obsessive-compulsive disorder type: mixed obsessional thoughts and acts Qualified Code(s): F42.2 - Mixed obsessional thoughts and acts Code(s): F42.9 - Obsessive-compulsive disorder, unspecified Medications: New hydroxyzine HCl 25 mg PO BEDTIME 90 tabs 0RF Counseling and coordination of Care Pt. Self Management counseling: Exercise, Maintenance-social rhythm, Mod caffeine/ETOH intake, Nutrition education and improvement, Sleep hygiene, Behavior activation and General coping skills Medication management counseling: Effectiveness, Side effects, Dosing range, Duration, Drug interaction and Adherence Diagnosis and Prognosis Counseling: Accuracy of diagnosis, Prognosis over time, Impact of diagnosis on life functions and Adequacy of current interventions Details: I spent 40 minutes reviewing the record, seeing the patient and documenting in the medical record. Counseling provided to the patient/caregiver as outlined below. Addressed patient/caregiver concerns regarding current medication regime including effective adherence. Addressed patient/caregiver concerns regarding diagnosis and prognosis including accuracy of diagnosis, prognosis over time, impact of diagnosis. Addressed patient/caregiver concerns regarding impact of recent stressors. [facility] Social History (Updated 07/16/22 @ 09:50 by Jerica Farmer) Alcohol intake: current Patient Tobacco Use Status: Never used Tobacco Current occupational status: employed Social History: lives with friends, graduated from [employer] [place]. Substance History: ETOH use 2-3 times a week; no other drugs Trauma History: none known Coding Level of Care Code Est Pt Level 4 (53281) Diagnoses Insomnia, unspecified type G47.00 Insomnia type: unspecified Major depressive disorder, recurrent, moderate F33.1 Mixed obsessional thoughts and acts F42.2 Obsessive-compulsive disorder type: mixed obsessional thoughts and acts
--- OUTSIDE RECORDS SUMMARY | 2024-08-07 14:35 | XMS_ITS | Encounter Summary ---
Author Organization [facility] Address [address] [place] [address] Phone Care Team Providers Care Flyer Repairer Name Role Phone Bertha Gary MD Primary Care Provider [phone] Reason for Visit * Reason Comments Med Refill Encounter Details Date Type Department Care Team ([facility] st Contact Info) Description 01/06/2018 Refill [facility] - [place] [address] [place] [address] Bertha Gary MD [address] [place] [address] Anxiety Social History Tobacco Use Types Packs/Day Years Used Date Smoking Tobacco: Some Days Smokeless Tobacco: Never Alcohol Use Standard Drinks/Week Comments Yes 0 (1 standard drink = 0.6 oz pur e alcohol) Comments No Sex and Gender Information Value Date Recorded Sex Assigned at Not on file Legal Sex Female 4:31 PM EST Gender Identity Not on file Sexual Orientation Not on file documented as of this encounter Miscellaneous Notes * Telephone Encounter - Bertha Gary MD - 01/09/2018 12:13 PM EDT Increased dose at last med recheck documented in this encounter Plan of Treatment Not on file documented as of this encounter Visit Diagnoses Diagnosis Anxiety Anxiety state, unspecified documented in this encounter Care Teams Flyer Repairer Relationship Specialty Start Date End Date Bertha Gary MD [address] [place] [id number] PCP - General Pediatrics 04/13/17 06/28/22 documented as of this encounter
--- OUTSIDE RECORDS SUMMARY | 2024-08-07 14:35 | XMS_ITS | Encounter Summary ---
Author Organization [facility] Address [address] [place] [address] Phone Care Team Providers Care Hat Finishing Materials Preparer Name Role Phone Bertha Gary MD Primary Care Provider [phone] Encounter Details Date Type Department Care Team (Late st Contact Info) Description 01/12/2017 Conversion Encounter [facility] - [address], [address] [place] [address] Bertha Gary MD [address] [place] [address] Social History Tobacco Use Types Packs/Day Years Used Date Smoking Tobacco: Never Assessed Comments Unknown Sex and Gender Information Value Date Recorded Sex Assigned at Not on file Legal Sex Female 4:31 PM EST Gender Identity Not on file Sexual Orientation Not on file documented as of this encounter Plan of Treatment Not on file documented as of this encounter Visit Diagnoses Not on filedocumented in this encounter Care Teams Hat Finishing Materials Preparer Relationship Specialty Start Date End Date Bertha Gary MD [address] [place] [address] PCP - General Pediatrics 04/13/17 06/28/22 documented as of this encounter
--- OUTSIDE RECORDS SUMMARY | 2024-08-07 14:35 | XMS_ITS | Clinical Summary ---
Author Organization [facility] Address [address] [place] [address] Phone Care Team Providers Care Acid Extractor Name Role Phone Unavailable Primary Care Provider Unavailabl e Allergies No known active allergies Medications sertraline (Zoloft) 50 MG tabletIndicatio ns:Anxiety,Depr essed mood Take 1 tablet (50 mg total) by mouth daily. 30 tablet 06/21/2019 Active sertraline 100 MG tabletIndicatio ns:Anxiety,Depr essed mood Take 1 tablet (100 mg total) by mouth daily. 30 tablet 06/21/2019 Active lamoTRIgine 25 MG tablet Take 50 mg by mouth every morning. 06/17/2021 Active cloNIDine 0.1 MG tablet TAKE 1- 1& 1/2 TABLET BY MOUTH AT BEDTIME NEEDED 07/10/2021 Active buPROPion XL 150 MG 24 hr tablet Take 150 mg by mouth once daily. 05/21/2021 Active Active Problems Problem Noted Date Diagnosed Date Elevated blood pressure reading 11/08/2017 Assessment & Plan (08/17/2018 10:47 AM EDT): BP normal today Assessment & Plan (11/08/2017 9:45 AM EDT): Normal BP reading today Anxiety 10/14/2017 Overview (12/22/2017): Slight benefit on sertraline 25 mg without side effects. Scared improvement from 13 to 8 after 5 weeks at sertraline 50 mg Assessment & Plan (08/17/2018 10:26 AM EDT): Improving on sertraline 150 mg dose. Has been at this increased dose level for 1 month. Assessment & Plan (08/03/2018 4:07 PM EST): Anxiety has improved with the increased dose of sertraline Assessment & Plan (06/22/2018 4:30 PM EST): Pt with persistent low-level symptoms of anxiety despite increased doses of sertraline. Will maintain her at this dose. Assessment & Plan (11/08/2017 9:45 AM EDT): Will increase to sertraline 50 mg Assessment & Plan (10/14/2017 5:46 PM EDT): There has been an increase in anxiety over the last several months despite weekly therapy. Inattention 05/26/2017 Assessment & Plan (05/26/2017 3:47 PM EST): 05/2017 self-report ADHD questionnaire 5/6 core symptoms of ADHD. Therapist also suspects that she may have ADHD. Depressed mood 05/26/2017 Overview (07/27/2018): PHQ9 score 20. Assessment & Plan (01/08/2020 8:40 AM EDT): ASQ screening performed -- negative x 4. Patient declines crisis/ED evaluation today. Given age and no active SI, this feels like reasonable plan at this time. No firearms/weapons in the home. Medications in the home are only sertraline and diazepam. Discussed with mother, present in the room for entire visit, to lock up meds, kitchen knives at least today. Mother feels that connection with her psychiatrist and therapist are preferrable to crisis evaluation -- she is also not concerned about SI/safety. I spoke with her therapist ([phone], Noreen Andrews) about today's events. She will be following up with Carrie later this evening. She did ask me to encourage Carrie to consider the second anti-depressant (wellbutrin) that has been recommended by her psychiatrist for many months now but she has had some resistance to consider adding to her regimen -- I called Carrie back to relay this and she was at home, sending message to her psychiatrist to discuss this very point. Assessment & Plan (08/03/2018 4:07 PM EST): Mood is not improved yet on sertraline 150 mg. Assessment & Plan (07/27/2018 9:29 PM EST): Will increase sertraline to 150 mg daily. No active SI or history of SI. Will return to original dose if negative mood changes on higher dose of sertraline. Continue to follow with established therapist. Will follow up with PCP in 1 week, we will call in 3-4 days to check in. Will return sooner if mood worsens. Assessment & Plan (06/22/2018 4:30 PM EST): Patient with persistent symptoms of depressed mood despite increased dose of sertraline Will maintain her at this dose. Assessment & Plan (12/22/2017 12:51 PM EDT): Will increase from 50 to 75 mg sertraline Assessment & Plan (10/14/2017 5:46 PM EDT): There has been an increased in depressive symptoms over the last several months despite being in weekly therapy. Assessment & Plan (05/26/2017 3:48 PM EST): Continue with weekly therapy and recheck in one month to assess the possible role of medication Migraine 10/24/2015 Assessment & Plan (06/21/2019 11:15 AM EST): stable Sleep disturbance 04/07/2015 Assessment & Plan (05/26/2017 3:54 PM EST): Discussed trying to keep a regular schedule so that she at least get 6 hours per night (rather than varying from 5-7). Vegetarian diet 04/07/2015 Overview (07/21/2021): Jul 2021 started eating fish Immunizations Immunization Administration Dates Next Due DTaP 04/24/2003, 1,1999,08/10,1999 H1N1 04/16/2009 HPV, Quadrivalent 03/14/2013,11/08/2012,09/05/19 13 Hep A, ped/adol 05/26/2017,06/25/2016 Hep B, ped/adol 10/11/2000,01/12/2000,1999 Hib (PRP-T) 08/16/2000, 0,1999,06/12 IPV 04/24/2003, 0,1999,06/12 Influenza 02/27/2009, 6,06/25/2005,05/21 Influenza, injectable, quadrivalent 03/13/2019,1 Influenza, injectable, quadr ivalent, preservative free 03/11/2021,03/09/2020,03/06/2019,05/19,03/24/2017,03/05/2016 Influenza, intranasal, quadrivalent 04/07/2015,1 ,03/29/2013 Influenza, intranasal, trivalent 04/04/2012,1108/2010,04/08/2010 MMR 05/06/2004,08/16/2000 Meningococcal B Trumenba 08/17/2018,11/18/2017 Meningococcal Conj (Menactra) MCV4P 06/25/2016,0 07/01/2011 Pneumococcal Conjugate 08/16/2000,04/13/2000,01/2000 Td 04/24/2003 Tdap 02/03/2020,01/07/2020,07/01/2011 Varicella 03/29/2008,04/13/2000 Family History Relation Name Status Comments Father Alive Father: allergi es Maternal Grandfather Mat GFa ther: allergies, prostate cancer, migraine Mother Alive Mother: migrain e Other 1 heart disease, celiac Other 2 migraine Other 3 Alive allergies Other 4 Alive eczema Other 5 Alive migraine Other 6 allergies, pros serrano cancer, migraine Paternal Grandfather Pat GFa ther: heart disease, celiac Social History Tobacco Use Types Packs/Day Years Used Date Smoking Tobacco: Some Days Smokeless Tobacco: Never Alcohol Use Standard Drinks/Week Comments Yes 0 (1 standard drink = 0.6 oz pure alcohol) Once or twice a week. 3-4 drinks Hunger/Food Answer Date Recorded In the last 12 months, did y ou or your family ever eat less than you felt you should because there wasn't enough money for food? No 07/21/2021 Stable Housing Answer Date Recorded Are you worried that in the next 2 months you may not have stable housing? No 07/21/2021 Transportation Concerns Answer Date Rec orded In the last 12 months, have you or your family ever had to go without healthcare because you didn't have a way to get there? No 07/21/2021 Hazards in Home Answer Date Recorded Think about the place you li ve. Do you have problems with any of the following? Pests (mice or roaches), mold, no/not working smoke detectors, water leaks, no window guards. No 2021 Financing Utilities Answer Date Recorde d In the last 12 months, has t he electric, gas, oil, or water company threatened to shut off your services in your home? No 07/21/2021 Safety at Home Answer Date Recorded Are you or your family worried about feeling saf e in your home? No 07/21/2021 Outside Support Answer Date Recorded Do you feel that you need mo re support from other people or programs to help you care for yourself or your family? No 07/21/2021 Understanding Health Concerns Answer Da te Recorded Do you need help understandi ng your or your child's healthcare needs (diagnosis, medications, plan, etc.)? No 07/21/2021 Financing Health Concerns Answer Date R ecorded In the last 12 months, was t here a time when your child needed to see a doctor or get medications or supplies but could not because of cost? No 07/21/2021 Missing School or Work Answer Date Gary rded Did you or your child miss s chool or work because of a health problem that could have been avoided? No 07/21/2021 Comments No Sex and Gender Information Value Date Recorded Sex Assigned at Not on file Legal Sex Female 4:31 PM EST Gender Identity Not on file Sexual Orientation Not on file Last Filed Vital Signs Vital Sign Reading Time Taken Comments Blood Pressure 108/78 07/21/2021 10:40 AM EST ma nual Pulse 83 06/21/2019 10:55 AM EST Temperature 36.8 ??C (98.2 ??F) 01/16/2020 9:36 AM ED T Respiratory Rate 18 07/27/2018 4:34 PM EST Oxygen Saturation 98% 07/27/2018 4:34 PM EST Inhaled Oxygen Concentration - - Weight 47.2 kg (104 lb) 07/21/2021 10:40 AM EST Height 159.4 cm (5' 2.75 ) 07/21/2021 10:[address] Body Mass Index 18.57 07/21/2021 10:40 AM EST Plan of Treatment Health Maintenance Due Date Last Done Comments Influenza Vaccines (#1) 2024 03/11/20, 03/09/2020, 03/13/2019, Additional history exists COVID-19 Vaccine (2023-2 5 season) 2024 03/03/2022, 06/01/2021, 09/20/2020, Additional history exists DTaP,Tdap,and Td Vaccines (9 - Td or Tdap) 02/02/2030 02/03/2020, 01/07/2020, 07/01/2011, Additional history exists HIB Vaccines Completed 08/16/2000, 01/2000, 1999, Additional history exists Pneumococcal Vaccine Completed 08/16/2000, 04/13/2000, 01/12/2000 Hepatitis B Vaccines Completed 10/11/2000, 01/12/2000, 1999 IPV Vaccines Completed 04/24/2003, 01/2000, 1999, Additional history exists MMR Vaccines Completed 05/06/2004, 08/16/2000 Varicella Vaccines Completed 03/29/2008, 04/13/2000 HPV Vaccines Completed 03/14/2013, 10/2012, 09/04/2012 Meningococcal Vaccine Completed 06/25/2016, 012 Hepatitis A Vaccines Completed 05/26/2017, 06/25/19 17 Men B Vaccine Completed 08/17/2018, 11/18/2017 Procedures * Due to [place] state law, this organization might not be sharing sensitive test results. Procedure Name Priority Date/Time Associated Diagnosis Comments CHLAMYDIA AND GONORRHEA, AMPLIFIED Routine 07/21/2021 12:00 PM EST Routine screening for STI (sexually transmitted infection) from Last 3 Months or Most Recently Relevant to Health Maintenance Results * Due to [place] state law, this organization might not be sharing sensitive test results. * Chlamydia and Gonorrhoea, Amplified (07/21/2021 12:00 PM EST) Chlamydia trachomatis RNA, TMA Not Detected Not Detected 07/22/2021 9:40 AM EST [facility] Neisseria gonorrhoeae, SONIA Not Detected Not Detected 07/22/2021 9:40 AM EST [facility] Specimen Type URINE 07/22/2021 9:40 AM [facility] Urine (Urine) 07/21/2021 12: 00 PM EST 07/21/2021 2:08 PM EST us Bertha Gary MD LAB MICROBIOLOGY - GENERAL ORD ERABLES Final Result [facility] from Last 3 Months or Most Recently Relevant to Health Maintenance
== END 2024-08-07 12:02 | disposition home or self-care (01) ==
LOC: HO.HOP 11:30
PROVIDERS: Visit Provider Clinical Nurse Specialist Psychiatric/Mental Health
DX: F33.1 Major depressive disorder, recurrent, moderate (principal); F42.2 Mixed obsessional thoughts and acts; G47.00 Insomnia, unspecified
CPT/HCPCS: 99214

== ENCOUNTER → 2024-08-07 11:30 | Outpatient (BNVA) | payer OTHER, SELFPAY | PROVIDERS: Visit Provider Clinical Nurse Specialist Psychiatric/Mental Health ==

== ENCOUNTER 2024-09-03 11:31 | Outpatient (AMB) | payer OTHER, SELFPAY ==
--- NOTE | 2024-09-03 11:39 | MHC.OFFVISPS ---
Intake Intake Visit Reasons: depression Funeral Car Driver Required: No Allergies diphenhydramine [From Benadryl] Adverse Reaction (Severe, Verified 11/18/23 10:33) agitation/hyper/anxious Medication List - Last Reconciled 09/03/24 by Liberty Hinson APRN bupropion HCl XL 300 mg PO DAILY guanfacine Take 1/2 to 1 tablet at bedtime as needed for sleep orally bedtime; hydroxyzine HCl 25 mg PO BEDTIME lamotrigine 100 mg PO BID sertraline 100 mg PO DAILY sumatriptan succinate mg PO HPI- Psychiatric Chief Complaint: depression HPI Narrative: Pt reports some worsening to depression; she is giving her notic at [employer] job today 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 she is feeling ready to change antidepressant from zoloft to lexapro. We discussed cross taper and she will message me if mood or symptoms worsen during cross taper. She reports passive SI but no plan and no intent; no self harm behaviors since last visit. Past Psychiatric History: no IPLOC History of self injury. at least two episodes of depression - one in high school and another which started in July 2018 and was quite significant for 3-6 weeks with increased SI and self harm urges; no hx hospitalization; has had stitches for self injury. Dx with ADHD. past medication trials Benadryl- adverse reaction with agitation, anxiety, hyperactive zoloft- moderate response- higher dose caused feeling detached melatonin- ineffective clonidine - ineffective trazodone - ineffective- too sedating mirtazepine- too sedating concerta - too activating ritlain - anxiety, ineffective adderall- activating Subjective Subjective Subjective Medication Compliance: Yes Side effects from medications: No Review of Systems Medical Review of Systems: unchanged Mental Status Exam Mental Status Exam Patient Appearance: Well Grooomed and Appropriate Patient Orientation: Person, Place, Time and Situation Level of Consciousness: Awake, Appropriate and Alert Patient Behavior: Appropriate and Cooperative Mood Description: Constricted, Anxious and Sad Affect Description: Constricted, Anxious and Sad Patient Cognition Impaired: No Ability to Follow Directions: Good Speech Pattern: Clear and Appropriate Memory Description: Intact Hallucinations: None Delusions: Not Present Thought Process: Intact Thought Content: positive for Intact Judgement: Good Assessment and Plan Assessment & Plan (1) Insomnia: Status: Acute Qualifiers: Insomnia type: unspecified Qualified Code(s): G47.00 - Insomnia, unspecified Code(s): G47.00 - Insomnia, unspecified (2) Major depressive disorder, recurrent, moderate: Status: Acute Code(s): F33.1 - Major depressive disorder, recurrent, moderate (3) OCD (obsessive compulsive disorder): Status: Acute Qualifiers: Obsessive-compulsive disorder type: mixed obsessional thoughts and acts Qualified Code(s): F42.2 - Mixed obsessional thoughts and acts Code(s): F42.9 - Obsessive-compulsive disorder, unspecified Plan startlexapro 5mg daily x 5 days - contine taking the zoloft 100mg daily On day 6 decrease zoloft to 50mg daily and increase lexapro to 10mg daily On day 16 Increase lexapro to 20mg daily and stop zoloft retrun for follow up at 6 weeks portal message or call if feeling more depressed or if symptoms worsen during any phase of cross taper Medications: New escitalopram oxalate (Lexapro) 10 mg PO DAILY 30 tabs 0RF sertraline (Zoloft) 50 mg PO DAILY 30 tabs 0RF Discontinued sertraline Discontinued Reason: Doctor's Order 100 mg PO DAILY 90 tabs 2RF Counseling and coordination of Care Pt. Self Management counseling: Exercise, Maintenance-social rhythm, Mindfulness, Mod caffeine/ETOH intake, Nutrition education and improvement, Sleep hygiene, Behavior activation and General coping skills Medication management counseling: Effectiveness, Side effects, Dosing range, Duration, Drug interaction and Adherence Diagnosis and Prognosis Counseling: Accuracy of diagnosis, Prognosis over time, Impact of diagnosis on life functions, Impact of family relationship, Problematic behaviors secondary to diagnosis and Adequacy of current interventions Details: I spent [] minutes reviewing the record, seeing the patient and documenting in the medical record. Counseling provided to the patient/caregiver as outlined below. Addressed patient/caregiver concerns regarding current medication regime including effective adherence. Addressed patient/caregiver concerns regarding diagnosis and prognosis including accuracy of diagnosis, prognosis over time, impact of diagnosis. Addressed patient/caregiver concerns regarding impact of recent stressors. [facility] Social History (Updated 07/16/22 @ 09:50 by Jerica Farmer) Alcohol intake: current Patient Tobacco Use Status: Never used Tobacco Current occupational status: employed Social History: lives with friends, [place] [employer] [place]. Substance History: ETOH use 2-3 times a week; no other drugs Trauma History: none known Coding Level of Care Code Est Pt Level 4 (62734) Diagnoses Insomnia, unspecified type G47.00 Insomnia type: unspecified Major depressive disorder, recurrent, moderate F33.1 Mixed obsessional thoughts and acts F42.2 Obsessive-compulsive disorder type: mixed obsessional thoughts and acts
--- OUTSIDE RECORDS SUMMARY | 2024-09-03 13:12 | XMS_ITS | Encounter Summary ---
Author Organization [facility] Address [address] [place] [address] Phone Care Team Providers Care Personal Banking Advisor Name Role Phone Bertha Gary MD Primary Care Provider [phone] Reason for Visit * Reason Comments Med Refill Encounter Details Date Type Department Care Team ([facility] st Contact Info) Description 01/06/2018 Refill [facility] - [place] [address] [place] [address] Bertha Gary MD [address] [place] [address] Anxiety Social History Tobacco Use Types Packs/Day [...] unspecified documented in this encounter Care Teams Personal Banking Advisor Relationship Specialty Start Date End Date Bertha Gary MD [address] [place] [id number] PCP - General Pediatrics 04/13/17 06/28/22 documented as of this encounter
--- OUTSIDE RECORDS SUMMARY | 2024-09-03 13:12 | XMS_ITS | Encounter Summary ---
Author Organization [facility] Address [address] [place] [address] Phone Care Team Providers Care Ror Engineer Name Role Phone Bertha Gary MD Primary Care Provider [phone] Encounter Details Date Type Department Care Team (Late st Contact Info) Description 01/12/2017 Conversion Encounter [facility] Pediatrics - [address], [address] [place] [address] Bertha Gary MD [address] [place] [address] Social History Tobacco Use Types Packs/Day Years [...] on filedocumented in this encounter Care Teams Ror Engineer Relationship Specialty Start Date End Date Bertha Gary MD [address] [place] [address] PCP - General Pediatrics 04/13/17 06/28/22 documented as of this encounter
--- OUTSIDE RECORDS SUMMARY | 2024-09-03 13:12 | XMS_ITS | Clinical Summary ---
Author Organization [facility] Address [address] [place] [address] Phone Care Team Providers Care Metal Miner Name Role Phone Unavailable Primary Care Provider [...] about SI/safety. I spoke with her therapist ([phone], Noreen Andrews) about today's events. She will [...] Completed 08/17/2018, 11/18/2017 Procedures * Due to [place] state law, this organization might not be sharing sensitive test results. Procedure Name Priority Date/Time Associated Diagnosis Comments CHLAMYDIA AND GONORRHEA, AMPLIFIED Routine 07/21/2021 12:00 PM EST Routine screening for STI (sexually transmitted infection) from Last 3 Months or Most Recently Relevant to Health Maintenance Results * Due to [place] state law, this organization might not be sharing sensitive test results. * Chlamydia and Gonorrhoea, Amplified (07/21/2021 12:00 PM EST) Chlamydia trachomatis RNA, TMA Not Detected Not Detected 07/22/2021 9:40 AM EST [facility] Neisseria gonorrhoeae, SONIA Not Detected Not Detected 07/22/2021 9:40 AM EST [facility] Specimen Type URINE 07/22/2021 9:40 AM [facility] Urine (Urine) 07/21/2021 12: 00 PM EST 07/21/2021 2:08 PM EST us Bertha Gary MD LAB MICROBIOLOGY - GENERAL ORD ERABLES Final Result [facility] from Last 3 Months or Most Recently Relevant to Health Maintenance
== END 2024-09-03 12:52 | disposition home or self-care (01) ==
LOC: HO.HOP 11:31
PROVIDERS: Visit Provider Clinical Nurse Specialist Psychiatric/Mental Health
DX: F33.1 Major depressive disorder, recurrent, moderate (principal); F42.2 Mixed obsessional thoughts and acts; G47.00 Insomnia, unspecified
CPT/HCPCS: 99214

== ENCOUNTER → 2024-09-03 11:31 | Outpatient (BNVA) | payer OTHER, SELFPAY | PROVIDERS: Visit Provider Clinical Nurse Specialist Psychiatric/Mental Health | DX: G47.00 Insomnia, unspecified (principal); F33.1 Major depressive disorder, recurrent, moderate; F42.2 Mixed obsessional thoughts and acts; Z71.89 Other specified counseling | CPT/HCPCS: 99212 ==

== ENCOUNTER 2024-10-01 12:57 | Outpatient (AMB) | payer OTHER, SELFPAY ==
--- NOTE | 2024-10-01 13:03 | A.OFFPSYCH_ITS ---
Intake Intake Visit Reasons: depression Nondestructive Tester Required: No Allergies diphenhydramine [From Benadryl] Adverse Reaction (Severe, Verified 11/18/23 10:33) agitation/hyper/anxious Medication List - Last Reconciled 10/01/24 by Liberty Hinson APRN bupropion HCl XL 300 mg PO DAILY escitalopram oxalate (Lexapro) 20 mg PO DAILY guanfacine Take 1/2 to 1 tablet at bedtime as needed for sleep orally bedtime; hydroxyzine HCl 25 mg PO BEDTIME lamotrigine 100 mg PO BID sumatriptan succinate mg PO HPI- Psychiatric Chief Complaint: depression HPI Narrative: Pt reports much improved; Tolerating the lexapro without side effects; reports much less depression and much less anxiety; sleep is fait; she sleeps approximately 8-9 hours but wakes in middle of night; she often feels tied. PHQ9=7 and GAD7= 3. furture oriented; no SI or HI Past Psychiatric History: no IPLOC History of self injury. at least two episodes of depression - one in high school and another which started in July 2018 and was quite significant for 3-6 weeks with increased SI and self harm urges; no hx hospitalization; has had stitches for self injury. Dx with ADHD. past medication trials Benadryl- adverse reaction with agitation, anxiety, hyperactive zoloft- moderate response- higher dose caused feeling detached melatonin- ineffective clonidine - ineffective trazodone - ineffective- too sedating mirtazepine- too sedating concerta - too activating ritlain - anxiety, ineffective adderall- activating Subjective Subjective Subjective Medication Compliance: Yes Side effects from medications: No Review of Systems Medical Review of Systems: unchanged Mental Status Exam Mental Status Exam Patient Appearance: Well Grooomed Patient Orientation: Person, Place, Time and Situation Level of Consciousness: Awake and Appropriate Patient Behavior: Appropriate and Cooperative Mood Description: Calm and Appropriate Affect Description: Calm and Appropriate Patient Cognition Impaired: No Ability to Follow Directions: Good Speech Pattern: Clear and Appropriate Memory Description: Intact Hallucinations: None Delusions: Not Present Thought Process: Intact Thought Content: positive for Intact Depressive Symptoms: Increased Anxiety Judgement: Good Assessment and Plan Assessment & Plan (1) Insomnia: Status: Acute Qualifiers: Insomnia type: unspecified Qualified Code(s): G47.00 - Insomnia, unspecified Code(s): G47.00 - Insomnia, unspecified (2) Major depressive disorder, recurrent, moderate: Status: Acute Code(s): F33.1 - Major depressive disorder, recurrent, moderate (3) OCD (obsessive compulsive disorder): Status: Acute Qualifiers: Obsessive-compulsive disorder type: mixed obsessional thoughts and acts Qualified Code(s): F42.2 - Mixed obsessional thoughts and acts Code(s): F42.9 - Obsessive-compulsive disorder, unspecified Medications: Refilled escitalopram oxalate (Lexapro) 20 mg PO DAILY 90 tabs 0RF lamotrigine 100 mg PO BID 180 tabs 1RF bupropion HCl XL 300 mg PO DAILY 30 tabs 2RF hydroxyzine HCl 25 mg PO BEDTIME 90 tabs 0RF Discontinued guanfacine Discontinued Reason: Doctor's Order Take 1/2 to 1 tablet at bedtime as needed for sleep orally bedtime; 90 tabs 0RF Counseling and coordination of Care Pt. Self Management counseling: Exercise, Maintenance-social rhythm, Mod ca ffeine/ETOH intake, Nutrition education and improvement, Sleep hygiene, Behavior activation and General coping skills Medication management counseling: Effectiveness, Side effects, Dosing range, Duration, Drug interaction and Adherence Diagnosis and Prognosis Counseling: Accuracy of diagnosis, Prognosis over time, Impact of diagnosis on life functions, Impact of family relationship, Problematic behaviors secondary to diagnosis and Adequacy of current interventions Details: I spent 35 minutes reviewing the record, seeing the patient and documenting in the medical record. Counseling provided to the patient/caregiver as outlined below. Addressed patient/caregiver concerns regarding current medication regime including effective adherence. Addressed patient/caregiver concerns regarding diagnosis and prognosis including accuracy of diagnosis, prognosis over time, impact of diagnosis. Addressed patient/caregiver concerns regarding impact of recent stressors. [facility] Social History (Updated 07/16/22 @ 09:50 by Jerica Farmer) Alcohol intake: current Patient Tobacco Use Status: Never used Tobacco Current occupational status: employed Social History: lives with friends, graduated from [employer] in 2022. Substance History: ETOH use 2-3 times a week; no other drugs Trauma History: none known Coding Level of Care Code Est Pt Level 4 (38867) Diagnoses Insomnia, unspecified type G47.00 Insomnia type: unspecified Major depressive disorder, recurrent, moderate F33.1 Mixed obsessional thoughts and acts F42.2 Obsessive-compulsive disorder type: mixed obsessional thoughts and acts
--- OUTSIDE RECORDS SUMMARY | 2024-10-01 15:32 | XMS_ITS | Encounter Summary ---
Author Organization [facility] Address [address] [place] [address] Phone Care Team Providers Care Museum Tour Guide Name Role Phone Bertha Gary MD Primary Care Provider [phone] Reason for Visit * Reason Comments Med Refill Encounter Details Date Type Department Care Team ([facility] st Contact Info) Description 01/06/2018 Refill [facility] - [place] [address] [place] [address] Bertha Gary MD [address] [place] [address] Anxiety Social History Tobacco Use Types Packs/Day [...] unspecified documented in this encounter Care Teams Museum Tour Guide Relationship Specialty Start Date End Date Bertha Gary MD [address] [place] [id number] PCP - General Pediatrics 04/13/17 06/28/22 documented as of this encounter
--- OUTSIDE RECORDS SUMMARY | 2024-10-01 15:32 | XMS_ITS | Clinical Summary ---
Author Organization [facility] Address [address] [place] [address] Phone Care Team Providers Care Gambling Floor Supervisor Name Role Phone Unavailable Primary Care Provider [...] about SI/safety. I spoke with her therapist ([phone], Noreen Andrews) about today's events. She will [...] Completed 08/17/2018, 11/18/2017 Procedures * Due to [place] state law, this organization might not be sharing sensitive test results. Procedure Name Priority Date/Time Associated Diagnosis Comments CHLAMYDIA AND GONORRHEA, AMPLIFIED Routine 07/21/2021 12:00 PM EST Routine screening for STI (sexually transmitted infection) from Last 3 Months or Most Recently Relevant to Health Maintenance Results * Due to [place] state law, this organization might not be sharing sensitive test results. * Chlamydia and Gonorrhoea, Amplified (07/21/2021 12:00 PM EST) Chlamydia trachomatis RNA, TMA Not Detected Not Detected 07/22/2021 9:40 AM EST [facility] Neisseria gonorrhoeae, SONIA Not Detected Not Detected 07/22/2021 9:40 AM EST [facility] Specimen Type URINE 07/22/2021 9:40 AM [facility] Urine (Urine) 07/21/2021 12: 00 PM EST 07/21/2021 2:08 PM EST us Bertha Gary MD LAB MICROBIOLOGY - GENERAL ORD ERABLES Final Result [facility] from Last 3 Months or Most Recently Relevant to Health Maintenance
--- OUTSIDE RECORDS SUMMARY | 2024-10-01 15:32 | XMS_ITS | Encounter Summary ---
Author Organization [facility] Address [address] [place] [address] Phone Care Team Providers Care Irrigation Worker Name Role Phone Bertha Gary MD Primary Care Provider Encounter Details Date Type Department Care Team (Late st Contact Info) Description 01/12/2017 Conversion Encounter [facility] Pediatrics - [address], [address] [place] [address] Bertha Gary MD [address] [place] [address] Social History Tobacco Use Types Packs/Day Years [...] on filedocumented in this encounter Care Teams Irrigation Worker Relationship Specialty Start Date End Date Bertha Gary MD [address] [place] [address] PCP - General Pediatrics 04/13/17 06/28/22 documented as of this encounter
== END 2024-10-01 13:22 | disposition home or self-care (01) ==
LOC: HO.HOP 12:57
PROVIDERS: Visit Provider Clinical Nurse Specialist Psychiatric/Mental Health
DX: F33.1 Major depressive disorder, recurrent, moderate (principal); F42.2 Mixed obsessional thoughts and acts; G47.00 Insomnia, unspecified
CPT/HCPCS: 99214

== ENCOUNTER → 2024-10-01 12:57 | Outpatient (BNVA) | payer OTHER, SELFPAY | PROVIDERS: Visit Provider Clinical Nurse Specialist Psychiatric/Mental Health ==

== ENCOUNTER 2024-12-03 16:43 | Outpatient (AMB) | payer OTHER, SELFPAY ==
--- NOTE | 2024-12-03 16:36 | MHC.OFFVISPS ---
Intake Intake Visit Reasons: depression Treating And Pumping Supervisor Required: No Allergies diphenhydramine (From Benadryl) Adverse Reaction (Severe, Verified 11/18/23 10:33) agitation/hyper/anxious Medication List - Last Reconciled 12/03/24 by Liberty Hinson APRN bupropion HCl XL 300 mg PO DAILY escitalopram oxalate (Lexapro) 20 mg PO DAILY hydroxyzine HCl 25 mg PO BEDTIME lamotrigine 100 mg PO BID sumatriptan succinate mg PO HPI- Psychiatric Chief Complaint: depression HPI Narrative: pt seen for follow up re: depression and anxiety. Pt reports compliance with medications; reports no side effects; reports school is very stressful because its an accelerated program but she is coping well and mood is stable; sleep and appetite variable but she feels thats related to school demands and not from depression. she denies self harm behaviors; she denies SI ro HI; she denies any medical changes. Past Psychiatric History: no IPLOC History of self injury. at least two episodes of depression - one in high school and another which started in July 2018 and was quite significant for 3-6 weeks with increased SI and self harm urges; no hx hospitalization; has had stitches for self injury. Dx with ADHD. past medication trials Benadryl- adverse reaction with agitation, anxiety, hyperactive zoloft- moderate response- higher dose caused feeling detached melatonin- ineffective clonidine - ineffective trazodone - ineffective- too sedating mirtazepine- too sedating concerta - too activating ritlain - anxiety, ineffective adderall- activating Subjective Subjective Subjective Medication Compliance: Yes Side effects from medications: No Review of Systems Medical Review of Systems: unchanged Mental Status Exam Mental Status Exam Patient Appearance: Well Grooomed and Appropriate Patient Orientation: Person, Place, Time and Situation Level of Consciousness: Awake and Appropriate Patient Behavior: Appropriate Mood Description: Appropriate, Cheerful and Anxious Affect Description: Appropriate, Cheerful and Anxious Patient Cognition Impaired: No Ability to Follow Directions: Good Speech Pattern: Clear and Coherent Memory Description: Intact Hallucinations: None Delusions: Not Present Thought Process: Intact and Goal Oriented Thought Content: positive for Intact and positive for Goal Oriented Judgement: Good Telehealth Telehealth Telehealth Platform: Other (please specify) ([email or web address]) Location of provider rendering services: practice address Location of patient: address on file Patient Identification confirmed using: Name, : Yes Telehealth method: video Patient verbally consented to treatment: Yes Patient verbally consented to billing insurance company: Yes Patient informed of any privacy concerns related to visit: Yes Minutes spent on Phone/Video with Pt.: 20 Assessment and Plan Assessment & Plan (1) OCD (obsessive compulsive disorder): Status: Acute Qualifiers: Obsessive-compulsive disorder type: mixed obsessional thoughts and acts Qualified Code(s): F42.2 - Mixed obsessional thoughts and acts Code(s): F42.9 - Obsessive-compulsive disorder, unspecified (2) Major depressive disorder, recurrent, moderate: Status: Acute Code(s): F33.1 - Major depressive disorder, recurrent, moderate Plan continue meds: lamictal, wellbutrin, lexapro, and hydroxyzine prn for sleep follow up in 2 months Medications: Refilled bupropion HCl XL 300 mg PO DAILY 30 tabs 2RF escitalopram oxalate (Lexapro) 20 mg PO DAILY 90 tabs 0RF Counseling and coordination of Care Pt. Self Management counseling: Maintenance-social rhythm, Mod caffeine/ETOH intake, Nutrition education and improvement, Sleep hygiene and Problem solving Medication management counseling: Effectiveness, Side effects, Dosing range, Duration, Drug interaction and Adherence Diagnosis and Prognosis Counseling: Accuracy of diagnosis, Prognosis over time, Impact of diagnosis on life functions, Impact of family relationship, Problematic behaviors secondary to diagnosis and Adequacy of current interventions Details: I spent [35] minutes reviewing the record, seeing the patient and documenting in the medical record. Counseling provided to the patient/caregiver as outlined below. Addressed patient/caregiver concerns regarding current medication regime including effective adherence. Addressed patient/caregiver concerns regarding diagnosis and prognosis including accuracy of diagnosis, prognosis over time, impact of diagnosis. Addressed patient/caregiver concerns regarding impact of recent stressors. [facility] Social History (Updated 07/16/22 @ 09:50 by Jerica Farmer) Alcohol intake: current Patient Tobacco Use Status: Never used Tobacco Current occupational status: employed Social History: lives with friends, graduated from [employer] [facility] [place] in 2022. Substance History: ETOH use 2-3 times a week; no other drugs Trauma History: none known Coding Level of Care Code Tele Est Pt Level 4 (01349) Diagnoses Mixed obsessional thoughts and acts F42.2 Obsessive-compulsive disorder type: mixed obsessional thoughts and acts Major depressive disorder, recurrent, moderate F33.1
== END 2024-12-03 16:43 | disposition home or self-care (01) ==
LOC: HO.HOP 16:43
PROVIDERS: Visit Provider Clinical Nurse Specialist Psychiatric/Mental Health
DX: F42.2 Mixed obsessional thoughts and acts (principal); F33.1 Major depressive disorder, recurrent, moderate
CPT/HCPCS: 99214

== ENCOUNTER 2025-01-31 17:59 | Outpatient (AMB) | payer OTHER, SELFPAY ==
--- NOTE | 2025-01-31 16:05 | MHC.OFFVISPS ---
Intake Intake Visit Reasons: depression Laboratory Apparatus Glass Grinder Required: No Allergies diphenhydramine (From Benadryl) Adverse Reaction (Severe, Verified 11/18/23 10:33) agitation/hyper/anxious Medication List - Last Reconciled 01/31/25 by Liberty Hinson APRN bupropion HCl XL 300 mg PO DAILY escitalopram oxalate (Lexapro) 20 mg PO DAILY hydroxyzine HCl 25 mg PO BEDTIME lamotrigine 100 mg PO BID sumatriptan succinate mg PO HPI- Psychiatric Chief Complaint: depression HPI Narrative: pt seen for follow up re: depression and anxiety. Pt reports compliance with medications; reports no side effects; reports school is going well despite the demands; she is coping well and mood is stable; sleep and appetite variable but she feels thats related to school demands and not from depression. she denies self harm behaviors; she denies SI ro HI; she denies any medical changes. Past Psychiatric History: no IPLOC History of self injury. at least two episodes of depression - one in high school and another which started in July 2018 and was quite significant for 3-6 weeks with increased SI and self harm urges; no hx hospitalization; has had stitches for self injury. Dx with ADHD. past medication trials Benadryl- adverse reaction with agitation, anxiety, hyperactive zoloft- moderate response- higher dose caused feeling detached melatonin- ineffective clonidine - ineffective trazodone - ineffective- too sedating mirtazepine- too sedating concerta - too activating ritlain - anxiety, ineffective adderall- activating Subjective Subjective Subjective Medication Compliance: Yes Side effects from medications: No Review of Systems Medical Review of Systems: unchanged Mental Status Exam Mental Status Exam Patient Appearance: Well Grooomed and Appropriate Patient Orientation: Person, Place, Time and Situation Level of Consciousness: Awake and Appropriate Patient Behavior: Appropriate Mood Description: Appropriate, Cheerful and Anxious Affect Description: Appropriate, Cheerful and Anxious Patient Cognition Impaired: No Ability to Follow Directions: Good Speech Pattern: Clear and Coherent Memory Description: Intact Hallucinations: None Delusions: Not Present Thought Process: Intact and Goal Oriented Thought Content: positive for Intact and positive for Goal Oriented Judgement: Good Telehealth Telehealth Telehealth Platform: Other (please specify) ([email or web address]) Location of provider rendering services: practice address Location of patient: address on file Patient Identification confirmed using: Name, : Yes Telehealth method: video Patient verbally consented to treatment: Yes Patient verbally consented to billing insurance company: Yes Patient informed of any privacy concerns related to visit: Yes Minutes spent on Phone/Video with Pt.: 20 Assessment and Plan Assessment & Plan (1) OCD (obsessive compulsive disorder): Status: Acute Qualifiers: Obsessive-compulsive disorder type: mixed obsessional thoughts and acts Qualified Code(s): F42.2 - Mixed obsessional thoughts and acts Code(s): F42.9 - Obsessive-compulsive disorder, unspecified (2) Major depressive disorder, recurrent, moderate: Status: Acute Code(s): F33.1 - Major depressive disorder, recurrent, moderate Plan reduce lamictal to 150 mg daily 100mg in am and 50 mg at 5pm continue meds: wellbutrin, lexapro, and hydroxyzine prn for sleep follow up in 2 months Medications: Refilled bupropion HCl XL 300 mg PO DAILY 30 tabs 2RF escitalopram oxalate (Lexapro) 20 mg PO DAILY 90 tabs 0RF hydroxyzine HCl 25 mg PO BEDTIME 90 tabs 0RF Counseling and coordination of Care Pt. Self Management counseling: Maintenance-social rhythm, Mod caffeine/ETOH intake, Nutrition education and improvement, Sleep hygiene and Problem solving Medication management counseling: Effectiveness, Side effects, Dosing range, Duration, Drug interaction and Adherence Diagnosis and Prognosis Counseling: Accuracy of diagnosis, Prognosis over time, Impact of diagnosis on life functions, Impact of family relationship, Problematic behaviors secondary to diagnosis and Adequacy of current interventions Details: I spent 24 minutes reviewing the record, seeing the patient and documenting in the medical record. Counseling provided to the patient/caregiver as outlined below. Addressed patient/caregiver concerns regarding current medication regime including effective adherence. Addressed patient/caregiver concerns regarding diagnosis and prognosis including accuracy of diagnosis, prognosis over time, impact of diagnosis. Addressed patient/caregiver concerns regarding impact of recent stressors. [facility] Social History (Updated 07/16/22 @ 09:50 by Jerica Farmer) Alcohol intake: current Patient Tobacco Use Status: Never used Tobacco Current occupational status: employed Social History: lives with friends, graduated from [employer] in 2022. Substance History: ETOH use 2-3 times a week; no other drugs Trauma History: none known Coding Level of Care Code Tele Est Pt Level 3 (06087) Diagnoses Mixed obsessional thoughts and acts F42.2 Obsessive-compulsive disorder type: mixed obsessional thoughts and acts Major depressive disorder, recurrent, moderate F33.1
--- OUTSIDE RECORDS SUMMARY | 2025-01-31 18:01 | XMS_ITS | Clinical Summary ---
Author Organization [facility] Address [address] [place] [id number] Phone Care Team Providers Care Membership Sales Representative Name Role Phone Bertha Gary MD Primary Care Provider Allergies No known active allergies Medications No known medications Social History Tobacco Use Types Packs/Day Years Used Date Smoking Tobacco: Never Smokeless Tobacco: Never Alcohol Use Standard Drinks/Week Comments No 0 (1 standard drink = 0.6 oz pur e alcohol) Education Answer Date Recorded Are you interested in more education? Not on lucila e 10/01/2022 Are you concerned about learning? Not on file 10/01/2022 No 10/01/2022 No 10/01/2022 Digital Access Answer Date Recorded No 11/01/2022 No 11/01/2022 No 11/01/2022 Reliable internet access at home? Not on file 11/01/2022 Device with a working camera? Not on file Comments Unknown Sex and Gender Information Value Date Recorded Sex Assigned at Female 01/17/2018 1:16 AM EDT Legal Sex Female 8:47 PM EDT Gender Identity Female 01/17/2018 1:16 AM EDT Sexual Orientation Straight 01/17/2018 1: 16 AM EDT Last Filed Vital Signs Vital Sign Reading Time Taken Comments Blood Pressure 125/87 01/17/2018 1:15 AM EDT Pulse 76 01/17/2018 1:15 AM EDT Temperature 37 C (98.6 F) 01/17/2018 1:15 AM EDT Respiratory Rate 17 01/17/2018 1:15 AM EDT Oxygen Saturation 99% 01/17/2018 1:15 AM EDT Inhaled Oxygen Concentration - - Weight 47.6 kg (105 lb) 01/17/2018 1:15 AM EDT Height - - Body Mass Index - - Plan of Treatment Not on file Medical Devices Not on file Insurance [employer] [facility] [address] [place] [address] [employer] [place] [address] [address] [place] [address] [employer] Care Teams Membership Sales Representative Relationship Specialty Start Date End Date Bertha Gary MD [address] [place] [address] [address] [place] [address] [email or web address] PCP - General Pediatrics 01/17/18 Additional Source Comments The information contained in this document represents components of the legal health record. It is not the complete legal health record.[facility]
--- OUTSIDE RECORDS SUMMARY | 2025-01-31 18:01 | XMS_ITS | Encounter Summary ---
Author Organization [facility] Address [address] [employer] (acquired by [employer] in 2014) [facility] [address] [place] [address] Phone Care Team Providers Care Usability Engineer Name Role Phone Bertha Gary MD Primary Care Provider [phone] Encounter Details Date Type Department Care Team (Late st Contact Info) Description 01/20/2018 Ancillary Orders Virtual Department [address] [place] [address] Bertha Gary MD [address] [facility] 2 [place] [address] [email or web address] Abdominal pain, generalized Social History Tobacco Use Types Packs/Day Years Used Date Smoking Tobacco: Never Smokeless Tobacco: Never Alcohol Use Standard Drinks/Week Comments No 0 (1 standard drink = 0.6 oz pur e alcohol) Comments Unknown Sex and Gender Information Value Date Recorded Sex Assigned at Female 01/17/2018 1:16 AM EDT Legal Sex Female 8:47 PM EDT Gender Identity Female 01/17/2018 1:16 AM EDT Sexual Orientation Straight 01/17/2018 1: 16 AM EDT documented as of this encounter Plan of Treatment Not on file documented as of this encounter Results * US PELVIS TRANSABDOMINAL ONLY (01/24/2018 1:56 PM EDT) Anatomical Region Laterality Modality Pelvis, Uterus/Adnexa Ultrasound 01/24/2018 2:02 PM EDT Impressions 01/24/2018 2:04 PM EDT No significant uterine or adnexal pathology identified on transabdominal scanning. POS [id number] Narrative 01/24/2018 2:04 PM EDT FINDINGS: No prior comparison studies available. Transabdominal scanning only was performed as patient was not sexually active. Uterus is in midline anteverted position and within normal limits overall size measuring 7.0 x 2.8 x 4.6 cm. Uterine parenchymal echo-texture is homogeneous and the endometrial echocomplex within normal limits at 0.4 cm in diameter. There is slightly limited evaluation of the ovaries due to a large amount of bowel gas. Right ovary measures 3.3 x 2.3 x 1.9 cm (7.5 cc) and the left ovary 3.0 x 3.2 x 3.0 cm (15.1 cc). Bilateral ovarian perfusion is documented on color Doppler imaging. Small bilateral follicular-type cysts are noted without solid ovarian mass apparent. No free fluid was seen within the cul-de-sac. Procedure Note Cassy Chin MD - 01/24/2018 FINDINGS: No prior comparison studies available. Transabdominal scanning only wasperformed as patient was not sexually active. Uterus is in midline anteverted position and within normal limits overallsize measuring 7.0 x 2.8 x 4.6 cm. Uterine parenchymal echo-texture ishomogeneous and the endometrial echocomplex within normal limits at 0.4 cmin diameter. There is slightly limited evaluation of the ovaries due to alarge amount of bowel gas. Right ovary measures 3.3 x 2.3 x 1.9 cm (7.5cc) and the left ovary 3.0 x 3.2 x 3.0 cm (15.1 cc). Bilateral ovarianperfusion is documented on color Doppler imaging. Small bilateralfollicular-type cysts are noted without solid ovarian mass apparent. Nofree fluid was seen within the cul-de-sac. IMPRESSION: No significant uterine or adnexal pathology identified on transabdominalscanning. POS [id number] us Bertha Gary MD IMG US PELVIS Final Result * US Abdomen Complete (01/24/2018 1:50 PM EDT) Anatomical Region Laterality Modality Abdomen Ultrasound 01/24/2018 2:04 PM EDT Impressions 01/24/2018 2:06 PM EDT Minimal fullness of the right intrarenal collecting system which could be related to bladder distention, without moy hydronephrosis apparent. No other significant abnormality of the visualized upper abdominal visceral structures. POS [id number] Narrative 01/24/2018 2:06 PM EDT COMPARISON: None FINDINGS: Gallbladder is within normal limits in appearance without evidence of cholelithiasis or focal wall thickening. The intrahepatic bile ducts are nondilated and the common duct within normal limits 0.2 cm in diameter. Liver and spleen are within normal limits in size and display homogeneous parenchymal echo-texture. Kidneys are within normal limits in size with minimal fullness of the right intrarenal collecting system possibly related to bladder fullness at the pelvic portion of the examination was performed immediately prior to the abdominal portion. No left-sided hydronephrosis apparent. No solid or cystic renal parenchymal lesion or shadowing intrarenal calculi seen. Visualized portions of the proximal abdominal aorta and IVC are within normal limits in size. Procedure Note Cassy Chin MD - 01/24/2018 COMPARISON: None FINDINGS: Gallbladder is within normal limits in appearance without evidence ofcholelithiasis or focal wall thickening. The intrahepatic bile ducts arenondilated and the common duct within normal limits 0.2 cm in diameter. Liver and spleen are within normal limits in size and display homogeneousparenchymal echo-texture. Kidneys are within normal limits in size withminimal fullness of the right intrarenal collecting system possiblyrelated to bladder fullness at the pelvic portion of the examination wasperformed immediately prior to the abdominal portion. No left-sidedhydronephrosis apparent. No solid or cystic renal parenchymal lesion orshadowing intrarenal calculi seen. Visualized portions of the proximalabdominal aorta and IVC are within normal limits in size. IMPRESSION: Minimal fullness of the right intrarenal collecting system which could berelated to bladder distention, without moy hydronephrosis apparent. Noother significant abnormality of the visualized upper abdominal visceralstructures. POS [id number] Bertha Gary MD IMG US ABDOMEN Final Result documented in this encounter Visit Diagnoses Diagnosis Abdominal pain, generalized Abdominal pain, generalized Abdominal pain, generalized documented in this encounter Care Teams Usability Engineer Relationship Specialty Start Date End Date Bertha Gary MD [address] [place] [address], [facility] [address] [place] [id number] [email or web address] PCP - General Pediatrics 01/17/18 documented as of this encounter Additional Source Comments The information contained in this document represents components of the legal health record. It is not the complete legal health record.[facility]
--- OUTSIDE RECORDS SUMMARY | 2025-01-31 18:01 | XMS_ITS | Encounter Summary ---
Author Organization [facility] Address [address] [place] [address] Phone Care Team Providers Care Manganese Breaker Name Role Phone Bertha aGry MD Primary Care Provider [phone] Encounter Details Date Type Department Care Team (Late st Contact Info) Description 01/12/2017 Conversion Encounter [facility] Pediatrics - [address], [address] [place] [address] Bertha Gary MD [address] [place] [address] Social History Tobacco Use Types Packs/Day Years [...] on filedocumented in this encounter Care Teams Manganese Breaker Relationship Specialty Start Date End Date Bertha Gary MD 193 [place] [address] PCP - General Pediatrics 04/13/17 06/28/22 documented as of this encounter
--- OUTSIDE RECORDS SUMMARY | 2025-01-31 18:01 | XMS_ITS | Encounter Summary ---
Author Organization [facility] Address [address] [place] [address] Phone Care Team Providers Care Livestock Farm Manager Name Role Phone Bertha Gary MD Primary Care Provider [phone] Reason for Visit * Reason Comments Med Refill Encounter Details Date Type Department Care Team ([facility] st Contact Info) Description 01/06/2018 Refill [facility] - [place] [address] [place] [address] Bertha Gary MD 193 [place] [address] Anxiety Social History Tobacco Use Types Packs/Day [...] unspecified documented in this encounter Care Teams Livestock Farm Manager Relationship Specialty Start Date End Date Bertha Gary MD [address] [place] [address] PCP - General Pediatrics 04/13/17 06/28/22 documented as of this encounter
--- OUTSIDE RECORDS SUMMARY | 2025-01-31 18:01 | XMS_ITS | Clinical Summary ---
Author Organization [facility] Address [address] [place] [address] Phone Care Team Providers Care Organic Lab Worker Name Role Phone Unavailable Primary Care Provider [...] about SI/safety. I spoke with her therapist ([phone], Noreen Andrews) about today's events. She will [...] 83 06/21/2019 10:55 AM EST Temperature 36.8 C (98.2 F) 01/16/2020 9:36 AM EDT Respiratory Rate 18 07/27/2018 4:34 PM EST Oxygen Saturation 98% 07/27/2018 4:34 PM EST Inhaled Oxygen Concentration - - Weight 47.2 kg (104 lb) 07/21/2021 10:40 AM EST Height 159.4 cm (5' 2.75 ) 07/21/2021 10:[address] Body Mass Index 18.57 07/21/2021 10:40 AM EST Plan of Treatment Health Maintenance Due Date Last Done Comments COVID-19 Vaccine (5 2023-2 5 season) 2024 03/03/2022, 06/01/2021, 09/20/2020, Additional history exists Influenza Vaccines (#1) 2025 03/11/20, 03/09/2020, 03/13/2019, Additional history exists DTaP,Tdap,and Td Vaccines (9 [...] Completed 08/17/2018, 11/18/2017 Procedures * Due to [place] state law, this organization might not be sharing sensitive test results. Procedure Name Priority Date/Time Associated Diagnosis Comments CHLAMYDIA AND GONORRHEA, AMPLIFIED Routine 07/21/2021 12:00 PM EST Routine screening for STI (sexually transmitted infection) from Last 3 Months or Most Recently Relevant to Health Maintenance Results * Due to [place] state law, this organization might not be sharing sensitive test results. * Chlamydia and Gonorrhoea, Amplified (07/21/2021 12:00 PM EST) Chlamydia trachomatis RNA, TMA Not Detected Not Detected 07/22/2021 9:40 AM EST [facility] Neisseria gonorrhoeae, SONIA Not Detected Not Detected 07/22/2021 9:40 AM EST [facility] Specimen Type URINE 07/22/2021 9:40 AM EST [facility] Urine (Urine) 07/21/2021 12: 00 PM EST 07/21/2021 2:08 PM EST us Bertha Gary MD LAB MICROBIOLOGY - GENERAL ORD ERABLES Final Result [facility] from Last 3 Months or Most Recently Relevant to Health Maintenance
== END 2025-01-31 18:00 | disposition home or self-care (01) ==
LOC: HO.HOP 17:59
PROVIDERS: Visit Provider Clinical Nurse Specialist Psychiatric/Mental Health
DX: F42.2 Mixed obsessional thoughts and acts (principal); F33.1 Major depressive disorder, recurrent, moderate
CPT/HCPCS: 99213

== ENCOUNTER 2025-03-21 16:26 | Outpatient (AMB) | payer OTHER, SELFPAY ==
--- NOTE | 2025-03-21 16:04 | A.OFFPSYCH_ITS ---
Intake Intake Visit Reasons: depression Metal Dresser Required: No Allergies diphenhydramine (From Benadryl) Adverse Reaction (Severe, Verified 11/18/23 10:33) agitation/hyper/anxious Medication List - Last Reconciled 03/21/25 by Liberty Hinson APRN bupropion HCl XL 300 mg PO DAILY escitalopram oxalate (Lexapro) 20 mg PO DAILY hydroxyzine HCl 25 mg PO BEDTIME lamotrigine 100 mg PO BID sumatriptan succinate mg PO HPI- Psychiatric Chief Complaint: depression HPI Narrative: pt seen for follow up re: depression and anxiety. Pt reports compliance with medications; In interim, pt messaged office saying she was having more depressive thoughts and feelings since reducing the lamictal; she resumed 100mg BID. she reports some of the negative thinking has remitted but not all; she is still feeling disconnected from herself and others at times, she sistill feeling bad about herself and having negative thoughts about herself. She reports no side effects; she reports school is going well despite the demands; she reports sleep and appetite variable but she feels thats related to school demands and not from depression. she denies self harm behaviors; she denies SI ro HI; she denies any medical changes. Past Psychiatric History: no IPLOC History of self injury. at least two episodes of depression - one in high school and another which started in July 2018 and was quite significant for 3-6 weeks with increased SI and self harm urges; no hx hospitalization; has had stitches for self injury. Dx with ADHD. past medication trials Benadryl- adverse reaction with agitation, anxiety, hyperactive zoloft- moderate response- higher dose caused feeling detached melatonin- ineffective clonidine - ineffective trazodone - ineffective- too sedating mirtazepine- too sedating concerta - too activating ritlain - anxiety, ineffective adderall- activating Subjective Subjective Subjective Medication Compliance: Yes Side effects from medications: No Review of Systems Medical Review of Systems: unchanged Mental Status Exam Mental Status Exam Patient Appearance: Well Grooomed and Appropriate Patient Orientation: Person, Place, Time and Situation Level of Consciousness: Awake and Appropriate Patient Behavior: Appropriate Mood Description: Appropriate, Cheerful and Anxious Affect Description: Appropriate, Cheerful and Anxious Patient Cognition Impaired: No Ability to Follow Directions: Good Speech Pattern: Clear and Coherent Memory Description: Intact Hallucinations: None Delusions: Not Present Thought Process: Intact and Goal Oriented Thought Content: positive for Intact and positive for Goal Oriented Judgement: Good Telehealth Telehealth Telehealth Platform: Ik[employer] Location of provider rendering services: practice address Location of patient: address on file Patient Identification confirmed using: Name, : Yes Telehealth method: video Patient verbally consented to treatment: Yes Patient verbally consented to billing insurance company: Yes Patient informed of any privacy concerns related to visit: Yes Minutes spent on Phone/Video with Pt.: 20 Assessment and Plan Assessment & Plan (1) OCD (obsessive compulsive disorder): Status: Acute Qualifiers: Obsessive-compulsive disorder type: mixed obsessional thoughts and acts Qualified Code(s): F42.2 - Mixed obsessional thoughts and acts Code(s): F42.9 - Obsessive-compulsive disorder, unspecified (2) Major depressive disorder, recurrent, moderate: Status: Acute Code(s): F33.1 - Major depressive disorder, recurrent, moderate Plan continue lamictal to10o mg BID continue meds: wellbutrin, lexapro, and hydroxyzine prn for sleep follow up in 4 weeks Medications: Refilled lamotrigine 100 mg PO BID 180 tabs 1RF bupropion HCl XL 300 mg PO DAILY 30 tabs 2RF escitalopram oxalate (Lexapro) 20 mg PO DAILY 90 tabs 0RF Counseling and coordination of Care Pt. Self Management counseling: Maintenance-social rhythm, Mod caffeine/ETOH intake, Nutrition education and improvement, Sleep hygiene and Problem solving Medication management counseling: Effectiveness, Side effects, Dosing range, Duration, Drug interaction and Adherence Diagnosis and Prognosis Counseling: Accuracy of diagnosis, Prognosis over time, Impact of diagnosis on life functions, Impact of family relationship, Problematic behaviors secondary to diagnosis and Adequacy of current interventions Details: I spent 30 minutes reviewing the record, seeing the patient and documenting in the medical record. Counseling provided to the patient/caregiver as outlined below. Addressed patient/caregiver concerns regarding current medication regime including effecti ve adherence. Addressed patient/caregiver concerns regarding diagnosis and prognosis including accuracy of diagnosis, prognosis over time, impact of diagnosis. Addressed patient/caregiver concerns regarding impact of recent stressors. [facility] Social History (Updated 07/16/22 @ 09:50 by Jerica Farmer) Alcohol intake: current Patient Tobacco Use Status: Never used Tobacco Current occupational status: employed Social History: lives with friends, graduated from [employer] in 2022. Substance History: ETOH use 2-3 times a week; no other drugs Trauma History: none known Coding Level of Care Code Tele Est Pt Level 4 (04625) Diagnoses Mixed obsessional thoughts and acts F42.2 Obsessive-compulsive disorder type: mixed obsessional thoughts and acts Major depressive disorder, recurrent, moderate F33.1
--- OUTSIDE RECORDS SUMMARY | 2025-03-21 19:43 | XMS_ITS | Encounter Summary ---
Author Organization [facility] Address [address] [facility] [address] [place] [address] Phone Care Team Providers Care Oracle Specialist Name Role Phone Bertha Gary MD Primary Care Provider [phone] Encounter Details Date Type Department Care Team (Late st Contact Info) Description 01/20/2018 Ancillary Orders Virtual Department [address] [place] [address] Bertha Gary MD 193 [facility] 2 [place] [address] [email or web address] Abdominal pain, generalized Social History Tobacco Use [...] generalized documented in this encounter Care Teams Oracle Specialist Relationship Specialty Start Date End Date Bertha Gary MD [address] [place] [address], [facility] [address] [place] [id number] [email or web address] PCP - General Pediatrics 01/17/18 documented as of this encounter Additional Source Comments The information contained in this document represents components of the legal health record. It is not the complete legal health record.[facility]
--- OUTSIDE RECORDS SUMMARY | 2025-03-21 19:43 | XMS_ITS | Clinical Summary ---
Author Organization [facility] Address [address] [place] [address] Phone Care Team Providers Care Lighting Adviser Name Role Phone Unavailable Primary Care Provider [...] about SI/safety. I spoke with her therapist ([phone], Noreen Andrews) about today's events. She will [...] Date Last Done Comments Influenza Vaccines (#1) 2025 03/11/20, 03/09/2020, 03/13/2019, Additional history exists COVID-19 Vaccine (2024- 6 season) 2025 03/03/2022, 06/01/2021, 09/20/2020, Additional history exists DTaP,Tdap,and [...] Completed 08/17/2018, 11/18/2017 Procedures * Due to [place] state law, this organization might not be sharing sensitive test results. Procedure Name Priority Date/Time Associated Diagnosis Comments CHLAMYDIA AND GONORRHEA, AMPLIFIED Routine 07/21/2021 12:00 PM EST Routine screening for STI (sexually transmitted infection) from Last 3 Months or Most Recently Relevant to Health Maintenance Results * Due to [place] state law, this organization might not be sharing sensitive test results. * Chlamydia and Gonorrhoea, Amplified (07/21/2021 12:00 PM EST) Chlamydia trachomatis RNA, TMA Not Detected Not Detected 07/22/2021 9:40 AM EST [facility] Neisseria gonorrhoeae, SONIA Not Detected Not Detected 07/22/2021 9:40 AM EST [facility] Specimen Type URINE 07/22/2021 9:40 AM EST [facility] Urine (Urine) 07/21/2021 12: 00 PM EST 07/21/2021 2:08 PM EST us Bertha Gary MD LAB MICROBIOLOGY - GENERAL ORD ERABLES Final Result [facility] from Last 3 Months or Most Recently Relevant to Health Maintenance
--- OUTSIDE RECORDS SUMMARY | 2025-03-21 19:43 | XMS_ITS | Encounter Summary ---
Author Organization [facility] Address [address] [place] [address] Phone Care Team Providers Care Boilermaker Central Steam Plant Name Role Phone Bertha Gary MD Primary Care Provider [phone] Encounter Details Date Type Department Care Team (Late st Contact Info) Description 01/12/2017 Conversion Encounter [facility] Pediatrics - [address], [address] [place] [address] Bertha Gary MD [address] [place] [address] Social History Tobacco Use Types Packs/Day Years [...] on filedocumented in this encounter Care Teams Boilermaker Central Steam Plant Relationship Specialty Start Date End Date Bertha Gary MD [address] [place] [address] PCP - General Pediatrics 04/13/17 06/28/22 documented as of this encounter
--- OUTSIDE RECORDS SUMMARY | 2025-03-21 19:43 | XMS_ITS | Clinical Summary ---
Author Organization [facility] Address [address] [employer] [address] [place] [address] Phone Care Team Providers Care Chain Builder Loom Control Name Role Phone Bertha Gary MD Primary Care Provider [phone] Allergies No known active allergies Medications No [...] [facility]CO [facility] [address] [address] [place] [address] [facility] [place] [address] [address] CHILDREN[facility]S [facility]CO Care Teams Chain Builder Loom Control Relationship Specialty Start Date End Date Bertha Gary MD [address] [place] [address] 2 [place] [address] [email or web address] PCP - General Pediatrics 01/17/18 Additional Source Comments The information contained in this document represents components of the legal health record. It is not the complete legal health record.[facility]
--- OUTSIDE RECORDS SUMMARY | 2025-03-21 19:43 | XMS_ITS | Encounter Summary ---
Author Organization [facility] Address [address] [place] [address] Phone Care Team Providers Care Syrup Blender Name Role Phone Bertha Gary MD Primary Care Provider [phone] Reason for Visit * Reason Comments Med Refill Encounter Details Date Type Department Care Team ([facility] st Contact Info) Description 01/06/2018 Refill [facility] Pediatrics - [place] [address] [place] [address] Bertha Gary MD [address] [place] [address] Anxiety Social History Tobacco Use Types Packs/Day [...] unspecified documented in this encounter Care Teams Syrup Blender Relationship Specialty Start Date End Date Bertha Gary MD [address] [place] [address] PCP - General Pediatrics 04/13/17 06/28/22 documented as of this encounter
== END 2025-03-21 16:27 | disposition home or self-care (01) ==
LOC: HO.HOP 16:26
PROVIDERS: Visit Provider Clinical Nurse Specialist Psychiatric/Mental Health
DX: F42.2 Mixed obsessional thoughts and acts (principal); F33.1 Major depressive disorder, recurrent, moderate
CPT/HCPCS: 99214

== ENCOUNTER 2025-04-18 17:06 | Outpatient (AMB) | payer OTHER, SELFPAY ==
--- NOTE | 2025-04-18 16:40 | A.OFFPSYCH_ITS ---
Intake Intake Visit Reasons: depression Bench Assembler Required: No Allergies diphenhydramine (From Benadryl) Adverse Reaction (Severe, Verified 11/18/23 10:33) agitation/hyper/anxious Medication List - Last Reconciled 04/18/25 by Liberty Hinson APRN bupropion HCl XL 300 mg PO DAILY escitalopram oxalate (Lexapro) 20 mg PO DAILY hydroxyzine HCl 25 mg PO BEDTIME lamotrigine 100 mg PO BID sumatriptan succinate mg PO HPI- Psychiatric Chief Complaint: depression HPI Narrative: pt seen for follow up re: depression and anxiety. Pt reports compliance with medications; Pt reports improved mood, less negative thoughts, still low energy and lack of interest but overall some imporovement. She reports no side effects; she reports school is going well despite the demands; she reports sleep and a ppetite variable but she feels thats related to school demands and not from depression. she denies self harm behaviors; she denies SI ro HI; she denies any medical changes. Past Psychiatric History: no IPLOC History of self injury. at least two episodes of depression - one in high school and another which started in July 2018 and was quite significant for 3-6 weeks with increased SI and self harm urges; no hx hospitalization; has had stitches for self injury. Dx with ADHD. past medication trials Benadryl- adverse reaction with agitation, anxiety, hyperactive zoloft- moderate response- higher dose caused feeling detached melatonin- ineffective clonidine - ineffective trazodone - ineffective- too sedating mirtazepine- too sedating concerta - too activating ritlain - anxiety, ineffective adderall- activating Mental Status Exam Mental Status Exam Patient Appearance: Well Grooomed and Appropriate Patient Orientation: Person, Place, Time and Situation Level of Consciousness: Awake and Appropriate Patient Behavior: Appropriate Mood Description: Calm, Appropriate and Constricted Affect Description: Calm, Appropriate and Constricted Patient Cognition Impaired: No Ability to Follow Directions: Good Speech Pattern: Clear and Coherent Memory Description: Intact Hallucinations: None Delusions: Not Present Thought Process: Intact and Goal Oriented Thought Content: positive for Intact and positive for Goal Oriented Judgement: Good Telehealth Telehealth Telehealth Platform: [facility] Location of provider rendering services: practice address Location of patient: address on file Patient Identification confirmed using: Name, : Yes Telehealth method: video Patient verbally consented to treatment: Yes Patient verbally consented to billing insurance company: Yes Patient informed of any privacy concerns related to visit: Yes Minutes spent on Phone/Video with Pt.: 23 Assessment and Plan Assessment & Plan (1) OCD (obsessive compulsive disorder): Status: Acute Qualifiers: Obsessive-compulsive disorder type: mixed obsessional thoughts and acts Qualified Code(s): F42.2 - Mixed obsessional thoughts and acts Code(s): F42.9 - Obsessive-compulsive disorder, unspecified (2) Major depressive disorder, recurrent, moderate: Status: Acute Code(s): F33.1 - Major depressive disorder, recurrent, moderate Plan continue lamictal to100 mg BID continue meds: wellbutrin, lexapro, and hydroxyzine prn for sleep follow up in 4 weeks Counseling and coordination of Care Pt. Self Management counseling: Maintenance-social rhythm, Mod caffeine/ETOH intake, Nutrition education and improvement, Sleep hygiene and Problem solving Medication management counseling: Effectiveness, Side effects, Dosing range, Duration, Drug interaction and Adherence Diagnosis and Prognosis Counseling: Accuracy of diagnosis, Prognosis over time, Impact of diagnosis on life functions, Impact of family relationship, Problematic behaviors secondary to diagnosis and Adequacy of current intervent ions Details: I spent 30 minutes reviewing the record, seeing the patient and documenting in the medical record. Counseling provided to the patient/caregiver as outlined below. Addressed patient/caregiver concerns regarding current medication regime including effective adherence. Addressed patient/caregiver concerns regarding diagnosis and prognosis including accuracy of diagnosis, prognosis over time, impact of diagnosis. Addressed patient/caregiver concerns regarding impact of recent stressors. [facility] Social History (Updated 07/16/22 @ 09:50 by Jerica Farmer) Alcohol intake: current Patient Tobacco Use Status: Never used Tobacco Current occupational status: employed Social History: lives with friends, graduated from [employer] in 2022. Substance History: ETOH use 2-3 times a week; no other drugs Trauma History: none known Coding Level of Care Code Tele Est Pt Level 4 (63430) Diagnoses Mixed obsessional thoughts and acts F42.2 Obsessive-compulsive disorder type: mixed obsessional thoughts and acts Major depressive disorder, recurrent, moderate F33.1
--- OUTSIDE RECORDS SUMMARY | 2025-04-18 18:59 | XMS_ITS | Encounter Summary ---
Author Organization [facility] Address [address] [employer] [facility] [address] [place] [address] Phone Care Team Providers Care Combat Control Name Role Phone Bertha Gary MD Primary Care Provider [phone] Encounter Details Date Type Department Care Team (Late st Contact Info) Description 01/20/2018 Ancillary Orders Virtual Department 30 [place] [address] Bertha Gary MD 193 [facility] 2 [place] [address] [email or web address] Abdominal pain, generalized Social History [...] generalized documented in this encounter Care Teams Combat Control Relationship Specialty Start Date End Date Bertha Gary MD [address] [place] [address], [facility] [address] [place] [phone] [email or web address] PCP - General Pediatrics 01/17/18 documented as of this encounter Additional Source Comments The information contained in this document represents components of the legal health record. It is not the complete legal health record.[facility]
--- OUTSIDE RECORDS SUMMARY | 2025-04-18 18:59 | XMS_ITS | Clinical Summary ---
Author Organization [facility] Address [address] [place] [address] Phone Care Team Providers Care Sifter Operator Name Role Phone Unavailable Primary Care Provider [...] about SI/safety. I spoke with her therapist ([phone], Noreen Andrews) about today's events. She will [...] Completed 08/17/2018, 11/18/2017 Procedures * Due to [place] state law, this organization might not be sharing sensitive test results. Procedure Name Priority Date/Time Associated Diagnosis Comments CHLAMYDIA AND GONORRHEA, AMPLIFIED Routine 07/21/2021 12:00 PM EST Routine screening for STI (sexually transmitted infection) from Last 3 Months or Most Recently Relevant to Health Maintenance Results * Due to [place] state law, this organization might not be sharing sensitive test results. * Chlamydia and Gonorrhoea, Amplified (07/21/2021 12:00 PM EST) Chlamydia trachomatis RNA, TMA Not Detected Not Detected 07/22/2021 9:40 AM EST [facility] Neisseria gonorrhoeae, SONIA Not Detected Not Detected 07/22/2021 9:40 AM EST [facility] Specimen Type URINE 07/22/2021 9:40 AM EST [facility] Urine (Urine) 07/21/2021 12: 00 PM EST 07/21/2021 2:08 PM EST us Bertha Gary MD LAB MICROBIOLOGY - GENERAL ORD ERABLES Final Result [facility] from Last 3 Months or Most Recently Relevant to Health Maintenance
--- OUTSIDE RECORDS SUMMARY | 2025-04-18 18:59 | XMS_ITS | Encounter Summary ---
Author Organization [facility] Address [address] [place] [address] Phone Care Team Providers Care Stock Sheets Cleaner Inspector Name Role Phone Bertha Gary MD Primary Care Provider [phone] Encounter Details Date Type Department Care Team (Late st Contact Info) Description 01/12/2017 Conversion Encounter [facility] Pediatrics - [address], [address] [place] [address] Bertha Gary MD [address] [place] [address] Social History Tobacco Use Types Packs/Day Years [...] on filedocumented in this encounter Care Teams Stock Sheets Cleaner Inspector Relationship Specialty Start Date End Date Bertha aGry MD [address] [place] [address] PCP - General Pediatrics 04/13/17 06/28/22 documented as of this encounter
--- OUTSIDE RECORDS SUMMARY | 2025-04-18 18:59 | XMS_ITS | Clinical Summary ---
Author Organization [facility] Address [address] [facility] [address] [place] [address] Phone Care Team Providers Care Sales Support Rep Name Role Phone Bertha Gary MD Primary [...] [facility] [place] [address] [facility] [address] [facility] Care Teams Sales Support Rep Relationship Specialty Start Date End Date Bertha Gary MD [address] [place] [address] [address] [place] [address] [email or web address] PCP - General Pediatrics 01/17/18 Additional Source Comments The information contained in this document represents components of the legal health record. It is not the complete legal health record.[facility]
--- OUTSIDE RECORDS SUMMARY | 2025-04-18 18:59 | XMS_ITS | Encounter Summary ---
Author Organization [facility] Address [address] [place] [address] Phone Care Team Providers Care Proposal Writer Name Role Phone Bertha Gary MD Primary Care Provider [phone] Reason for Visit * Reason Comments Med Refill Encounter Details Date Type Department Care Team ([facility] st Contact Info) Description 01/06/2018 Refill [facility] Pediatric[facility] - [place] [address] [place] [address] Bertha Gary MD [address] [place] [address] Anxiety Social History Tobacco Use Types Packs/Day [...] unspecified documented in this encounter Care Teams Proposal Writer Relationship Specialty Start Date End Date Bertha Gary MD [address] [place] [id number] PCP - General Pediatrics 04/13/17 06/28/22 documented as of this encounter
== END 2025-04-18 17:12 | disposition home or self-care (01) ==
LOC: HO.HOP 17:06
PROVIDERS: Visit Provider Clinical Nurse Specialist Psychiatric/Mental Health
DX: F42.2 Mixed obsessional thoughts and acts (principal); F33.1 Major depressive disorder, recurrent, moderate
CPT/HCPCS: 99214

== ENCOUNTER 2025-05-23 16:49 | Outpatient (AMB) | payer OTHER, SELFPAY ==
--- NOTE | 2025-05-23 16:29 | A.OFFPSYCH_ITS ---
Intake Intake Visit Reasons: depression Spring Setter Required: No Allergies diphenhydramine (From Benadryl) Adverse Reaction (Severe, Verified 11/18/23 10:33) agitation/hyper/anxious Medication List - Last Reconciled 05/23/25 by Liberty Hinson APRN bupropion HCl XL 300 mg PO DAILY escitalopram oxalate (Lexapro) 20 mg PO DAILY hydroxyzine HCl 25 mg PO BEDTIME lamotrigine 100 mg PO BID sumatriptan succinate mg PO HPI- Psychiatric Chief Complaint: depression HPI Narrative: pt seen for follow up re: depression and anxiety. Pt reports compliance with medications; Pt reports improved mood, less negative thoughts, low energy but more interest in activities and being social. Pt reports overall improvement. She reports no side effects from meds; she reports school is going well despite the demands; she reports sleep and appetite variable. she denies self harm behaviors; she denies SI or HI; she denies any medical changes. Labs reviewed;CMP and CBC normal; TSH normal. Vitamin D level 33. Past Psychiatric History: no IPLOC History of self injury. at least two episodes of depression - one in high school and another which started in July 2018 and was quite significant for 3-6 weeks with increased SI and self harm urges; no hx hospitalization; has had stitches for self injury. Dx with ADHD. past medication trials Benadryl- adverse reaction with agitation, anxiety, hyperactive zoloft- moderate response- higher dose caused feeling detached melatonin- ineffective clonidine - ineffective trazodone - ineffective- too sedating mirtazepine- too sedating concerta - too activating ritlain - anxiety, ineffective adderall- activating Subjective Subjective Medication Compliance: Yes Side effects from medications: No Review of Systems Medical Review of Systems: unchanged Mental Status Exam Mental Status Exam Patient Appearance: Well Grooomed and Appropriate Patient Orientation: Person, Place, Time and Situation Level of Consciousness: Awake and Appropriate Patient Behavior: Appropriate Mood Description: Calm, Appropriate and Constricted Affect Description: Calm, Appropriate and Constricted Patient Cognition Impaired: No Ability to Follow Directions: Good Speech Pattern: Clear and Coherent Memory Description: Intact Hallucinations: None Delusions: Not Present Thought Process: Intact and Goal Oriented Thought Content: positive for Intact and positive for Goal Oriented Judgement: Good Telehealth Telehealth Telehealth Platform: [facility] Location of provider rendering services: practice address Location of patient: address on file Patient Identification confirmed using: Name, : Yes Telehealth method: video Patient verbally consented to treatment: Yes Patient verbally consented to billing insurance company: Yes Patient informed of any privacy concerns related to visit: Yes Minutes spent on Phone/Video with Pt.: 15 Assessment and Plan Assessment & Plan (1) OCD (obsessive compulsive disorder): Status: Acute Qualifiers: Obsessive-compulsive disorder type: mixed obsessional thoughts and acts Qualified Code(s): F42.2 - Mixed obsessional thoughts and acts Code(s): F42.9 - Obsessive-compulsive disorder, unspecified (2) Major depressive disorder, recurrent, moderate: Status: Acute Code(s): F33.1 - Major depressive disorder, recurrent, moderate Plan continue meds: lamictal, wellbutrin, lexapro, and hydroxyzine prn for sleep follow up in 4 weeks Medications: Refilled bupropion HCl XL 300 mg PO DAILY 30 tabs 2RF escitalopram oxalate (Lexapro) 20 mg PO DAILY 90 tabs 0RF lamotrigine 100 mg PO BID 180 tabs 1RF Counseling and coordination of Care Pt. Self Management counseling: Maintenance-social rhythm, Mod caffeine/ETOH intake, Nutrition education and improvement, Sleep hygiene and Problem solving Medication management counseling: Effectiveness, Side effects, Dosing range, Duration, Drug interaction and Adherence Diagnosis and Prognosis Counseling: Accuracy of diagnosis, Prognosis over time, Impact of diagnosis on life functions, Impact of family relationship, Problematic behaviors secondary to diagnosis and Adequacy of current interventions Details: I spent 23 minutes reviewing the record, seeing the patient and documenting in the medical record. Counseling provided to the patient/caregiver as outlined below. Addressed patient/caregiver concerns regarding current medication regime including effective adherence. Addressed patient/caregiver concerns regarding diagnosis and prognosis including accuracy of diagnosis, prognosis over time, impact of diagnosis. Addressed patient/caregiver concerns regarding impact of recent stressors. [facility] Social History (Updated 07/16/22 @ 09:50 by Jerica Farmer) Alcohol intake: current Patient Tobacco Use Status: Never used Tobacco Current occupational status: employed Social History: lives with friends, graduated from [employer] in 2022. Substance History: ETOH use 2-3 times a week; no other drugs Trauma History: none known Coding Level of Care Code Tele Est Pt Level 3 (40393) Diagnoses Mixed obsessional thoughts and acts F42.2 Obsessive-compulsive disorder type: mixed obsessional thoughts and acts Major depressive disorder, recurrent, moderate F33.1
--- OUTSIDE RECORDS SUMMARY | 2025-05-23 19:48 | XMS_ITS | Clinical Summary ---
Author Organization [facility] Address [address] [place] [address] Phone Care Team Providers Care Pre Certification Specialist Name Role Phone Unavailable Primary Care Provider [...] about SI/safety. I spoke with her therapist ([phone], Noreen Andrews) about today's events. She will [...] Completed 08/17/2018, 11/18/2017 Procedures * Due to [place] state law, this organization might not be sharing sensitive test results. Procedure Name Priority Date/Time Associated Diagnosis Comments CHLAMYDIA AND GONORRHEA, AMPLIFIED Routine 07/21/2021 12:00 PM EST Routine screening for STI (sexually transmitted infection) from Last 3 Months or Most Recently Relevant to Health Maintenance Results * Due to [place] state law, this organization might not be sharing sensitive test results. * Chlamydia and Gonorrhoea, Amplified (07/21/2021 12:00 PM EST) Chlamydia trachomatis RNA, TMA Not Detected Not Detected 07/22/2021 9:40 AM EST [facility] Neisseria gonorrhoeae, SONIA Not Detected Not Detected 07/22/2021 9:40 AM EST [facility] Specimen Type URINE 07/22/2021 9:40 AM EST [facility] Urine (Urine) 07/21/2021 12: 00 PM EST 07/21/2021 2:08 PM EST us Bertha Gary MD LAB MICROBIOLOGY - GENERAL ORD ERABLES Final Result [facility] from Last 3 Months or Most Recently Relevant to Health Maintenance
--- OUTSIDE RECORDS SUMMARY | 2025-05-23 19:48 | XMS_ITS | Encounter Summary ---
Author Organization [facility] Address [address] [place] [address] Phone Care Team Providers Care Peoplesoft Administrator Name Role Phone Bertha Gary MD Primary Care Provider Encounter Details Date Type Department Care Team (Late st Contact Info) Description 01/12/2017 Conversion Encounter [facility] Pediatrics - [address], [address] [place] [address] Bertha Gary MD [address] [place] [address] Social History Tobacco Use Types Packs/Day Years [...] on filedocumented in this encounter Care Teams Peoplesoft Administrator Relationship Specialty Start Date End Date Bertha Gary MD [address] [place] [address] PCP - General Pediatrics 04/13/17 06/28/22 documented as of this encounter
--- OUTSIDE RECORDS SUMMARY | 2025-05-23 19:48 | XMS_ITS | Encounter Summary ---
Author Organization [facility] Address [address] [facility] [address] [place] [address] Phone Care Team Providers Care Setter Helper Name Role Phone Bertha Gary MD Primary Care Provider [phone] Encounter Details Date Type Department Care Team (Late st Contact Info) Description 01/20/2018 Ancillary Orders Virtual Department 30 [place] [address] Bertha Gary MD 193 [facility] 2 [place] [address] [email or web address] Abdominal pain, generalized Social History Tobacco [...] generalized documented in this encounter Care Teams Setter Helper Relationship Specialty Start Date End Date Bertha Gary MD [address] [place] [address], [facility] [address] [place] [phone] [email or web address] PCP - General Pediatrics 01/17/18 documented as of this encounter Additional Source Comments The information contained in this document represents components of the legal health record. It is not the complete legal health record.[facility]
--- OUTSIDE RECORDS SUMMARY | 2025-05-23 19:48 | XMS_ITS | Encounter Summary ---
Author Organization [facility] Address [address] [place] [address] Phone Care Team Providers Care Food Prep Worker Name Role Phone Bertha Gary MD Primary Care Provider [phone] Reason for Visit * Reason Comments Med Refill Encounter Details Date Type Department Care Team ([facility] st Contact Info) Description 01/06/2018 Refill [facility] Pediatrics - [place] [address] [place] [address] Bertha Gary MD [address] [place] [address] Anxiety Social History Tobacco Use Types Packs/Day [...] unspecified documented in this encounter Care Teams Food Prep Worker Relationship Specialty Start Date End Date Bertha Gary MD [address] [place] [address] PCP - General Pediatrics 04/13/17 06/28/22 documented as of this encounter
--- OUTSIDE RECORDS SUMMARY | 2025-05-23 19:48 | XMS_ITS | Clinical Summary ---
Author Organization [facility] Address [address] [facility] [address] [place] [phone] Phone Care Team Providers Care Hardwood Flooring Specialist Name Role Phone Bertha Gary MD [...] [facility] [address] [place] [address] [facility] [address] [facility] Care Teams Hardwood Flooring Specialist Relationship Specialty Start Date End Date Bertha Gary MD [address] [place] [address] 2 [place] [address] [email or web address] PCP - General Pediatrics 01/17/18 Additional Source Comments The information contained in this document represents components of the legal health record. It is not the complete legal health record.[facility]
== END 2025-05-23 16:50 | disposition home or self-care (01) ==
LOC: HO.HOP 16:49
PROVIDERS: Visit Provider Clinical Nurse Specialist Psychiatric/Mental Health
DX: F42.2 Mixed obsessional thoughts and acts (principal); F33.1 Major depressive disorder, recurrent, moderate
CPT/HCPCS: 99213